=== PATIENT | male | born 1965 | race Caucasian/White ===

== ENCOUNTER 2016-10-11 14:28 | Inpatient (IN) ==
[2016-10-11] MEDS ORDERED: Mag Hydrox/Al Hydrox/Simeth 30 ML UDC PO PRN (17:01)
[2016-10-11] MEDS ORDERED: Naloxone 0.4 MG/ML INJ IVP PRN (17:01)
[2016-10-11] MEDS ORDERED: MOM Conc 10 ML UD.LIQ PO PRN (17:01)
[2016-10-11] MEDS ORDERED: Ondansetron 4 MG/2 ML VIAL IVP PRN (17:01)
--- NOTE | 2016-10-11 17:21 | Internal Med History&Physical ---
Date of Encounter: 10/11/16 Time of Encounter: 17:14 Assessment and Plan (1) Severe sepsis Current visit: Yes Status: Acute Pt with elevated WBC and tachycardia as well as elevated lactate and pneumonia. Received IV fluids in ED. Started on abx after cultures obtained. Repeat lactate ordered. Continuing abx to cover postobstructive pneumonia. (2) Pneumonia Current visit: Yes Status: Acute Pt with postobstructive pneumonia due to mass obstructing RLL bronchus. Most likely is gram neg or other aerobic bacteria. IV abx ordered. At this time he is oxygenating fine. Qualifiers: Pneumonia type: due to other aerobic Gram-negative bacteria Laterality: bilateral Lung location: lower lobe of lung Qualified Code(s): J15.6 - Pneumonia due to other aerobic Gram-negative bacteria (3) Lung mass Current visit: Yes Status: Acute Cavitary mass in RLL area with associated adenopathy. Was to have biopsy on Wednesday. Will follow and see if can be obtained here. (4) Atrial fibrillation Current visit: Yes Status: Acute Pt with rapid atrial fib. Given IV Cardizem in ED. Will order PRN meds and start Cardizem drip if needed. No anticoagulation at this time due to hemoptysis. Qualifiers: Atrial fibrillation type: persistent Qualified Code(s): I48.1 - Persistent atrial fibrillation (5) Hemoptysis Current visit: Yes Status: Acute Related to lung mass and post obstructive pneumonia. Follow H/H. (6) Hypokalemia Current visit: Yes Status: Acute Given potassium in ED. Will reheck and replace more if needed. (7) Tobacco abuse Current visit: Yes Status: Acute Patch if needed and cessation counselling. (8) Acute renal failure Current visit: Yes Status: Acute Pt with elevated BUN and creatinine. ? if baseline (CKD 3). Will hydrate and recheck tomorrow. Qualifiers: Acute renal failure type: unspecified Qualified Code(s): N17.9 - Acute kidney failure, unspecified (9) Hypertension Current visit: Yes Status: Acute Follow BP and treat if elevated (was lower on arrival). Qualifiers: Hypertension type: essential hypertension Qualified Code(s): I10 - Essential (primary) hypertension Internal Medicine - H&P: HPI Chief complaint: Shortness of breath Admitted From: Hospital to Hospital Transfer Plans for Post Hospital Care: Transfer Custodial Facility History of present illness: Mr. Contreras is a 51 year old male with a very complicated recent history. 3-4 weeks ago he developed symptoms of respiratory infection. He was seen by his PCP and treated with abx. He was no better and returned for recheck 2 weeks later. He was sent for xrays which reveal lesion in RLL area and hilar adenopathy. He underwent CT and found a cavitary mass in RLL area. Further imaging included PET scan which was positive in that area. He followed up with oncology and was to have a biopsy (? bronch) next Wednesday. He had preop testing and was called on that his heartrate was 170. He also has been having hemoptysis over the last few days - he describes varying amounts. No fever or chills but feels more dyspneic with movement. He does continue to smoke and vape. No nausea or vomiting or constipation. No melena. Today he was more dyspneic and went to ED. He was found to be in rapid atrial fibrillation and CTA of chest showed extensive pneumonia (postobstructive) and presumed tumor. At this time he is comfortable but wants oxygen on (sat 96% on RA). He feels dyspneic at rest. Past Med Surg Social Fam HX - Past Medical History Medical history: cancer (? lung), hypertension - Past Surgical History Surgical History: appendectomy, herniorrhaphy (Had hiatel hernia repair - dehiscence after with repair.), orthopedic, other (L knee meniscus) - Social History Smoking Status: Current every day smoker Alcohol use: none Drug use: marijuana - Family History Father Living Status: (Accident) Cause of : Accident Hx Family Cardiac Disorders: Yes (HTN) Internal Medicine - H&P: Meds Amlodipine Besylate 10 mg PO BID 09/22/16 [History] Ascorbate Calcium [Vitamin C] 500 mg PO DAILY 09/22/16 [History] Aspirin 81 mg PO DAILY 09/22/16 [History] ClonazePAM [Klonopin] 1 mg PO TID 09/22/16 [History] Lisinopril-HCTZ 20-12.5 [Prinzide 20-12.5] 1 each PO DAILY 09/22/16 [History] Multivitamin [Multi-Day Vitamins] 1 each PO DAILY 09/22/16 [History] Allergies No Known Allergies Allergy (Verified 10/11/16 11:18) All Systems PM: A 10-system review of systems was performed and is negative for pertinent findings except as documented above in the HPI. - Constitutional Constitutional: anorexia, chills, excessive sweating, fatigue, malaise, weakness , weight loss - EENT Eyes: loss of vision Additional comments: Has visual field deficits from previous pituitary tumor. Ears: no decreased hearing Nose, mouth and throat: no mouth pain, no nasal discharge, no sinus pain - Cardiovascular Cardiovascular ROS IM: dyspnea, dyspnea on exertion, irregular heart rhythm, palpitations, no chest pain, no edema, no paroxysmal nocturnal dyspnea, no syncope - Respiratory Respiratory: cough, dyspnea, hemoptysis, dyspnea on exertion, chest congestion - Gastrointestinal Gastrointestinal: no abdominal pain, no constipation, no diarrhea, no heartburn , no melena - Genitourinary Genitourinary ROS male: no difficulty urinating, no dysuria, no hematuria - Musculoskeletal Musculoskeletal ROS IM: no arthralgias, no myalgias - Integumentary Integumentary IM: no erythema, no rash - Neurological Neurological ROS: no abnormal movements, no abnormal speech, no confusion, no dizziness - Psychiatric Psychiatric: no confusion, no depression - Endocrine Endocrine IM: excessive sweating, fatigue, no heat intolerance, no polydipsia - Hematologic/Lymphatic Hematologic/Lymphatic: no easy bleeding, no easy bruising - Allergic/Immunologic Allergic/Immunologic: no tongue swelling, no throat swelling - Constitutional Vitals: Temp Pulse Resp BP Pulse Ox 97.6 F 110 17 84/59 97 10/11/16 16:25 10/11/16 16:25 10/11/16 16:25 10/11/16 16:25 10/11/16 16:25 General appearance: Present: A&O X 3, answers questions appropriately - Head Head exam: Present: normocephalic - Eye Eye exam: Present: conjuntiva pink - ENT ENT exam: Present: mucous membranes dry - Respiratory Respiratory exam: Present: decreased breath sounds, rales Additional comments: Egophony present R base. - Cardiovascular Cardiovascular exam: Present: distant heart sounds, irregular rhythm, tachycardia - GI/Abdominal GI/Abdominal exam: Present: normal bowel sounds, soft. Absent: tenderness - Extremities Exam Extremities exam: Present: warm. Absent: joint swelling, pedal edema - Neurological Exam Neurological exam: Present: alert, oriented X3. Absent: motor sensory deficit, facial droop - Psychiatric Psychiatric exam: Present: normal affect, normal mood - Skin Skin exam: Present: dry, warm. Absent: rash
[2016-10-11] MEDS ORDERED: Vancomycin 1,250 MG in D5% in Water 250 ML IVPB SCH (18:00)
[2016-10-11] MEDS ORDERED: *HR* HYDROcodone/Acet 5/325 mg TABLET PO PRN (18:00)
[2016-10-11] MEDS ORDERED: *HR* Metoprolol 5 MG/5 ML VIAL IVP PRN (18:22)
[2016-10-11] MEDS ORDERED: Vancomycin 500 MG in D5% in Water (Mini-Bag+) 100 ML IVPB ONE (20:06)
[2016-10-11] MEDS: clonazePAM 1 MG TABLET PO SCH (21:35)
[2016-10-11] MEDS: 0.9 % Sodium Chloride 1,000 ML IVC SCH (21:36)
[2016-10-11] MEDS: Piperacillin/Tazobactam 3.375 GM in D5% in Water (Mini-Bag+) 100 ML IVPB SCH (23:44)
[2016-10-12 01:03] LABS: Mean Corpuscular Volume 80.5 fL (83.0-100.0); Mean Platelet Volume 10.6 fL (9.4-12.4); Red Cell Distribution Width 13.2 % (11.5-14.5)
[2016-10-12 01:04] LABS: Monocytes % 5.2 %
[2016-10-12 01:05] LABS: Basophils # 0.1 K/mcL (0.0-0.2); Basophils % 0.2 %; Hematocrit 33.1 % (37.5-50.1); Hemoglobin 11.5 g/dL (12.9-16.9); Immature Granulocytes % 1.6 % (0-4); Lymphocytes # 1.6 K/mcL (0.6-4.6); Lymphocytes % 5.4 %; Mean Corpuscular HGB Conc 34.7 g/dL (31.6-35.5); Monocytes # 1.6 K/mcL (0.0-1.3); Platelet Count 337 K/mcL (140-400); Red Blood Count 4.11 M/mcL (4.19-5.50); Segmented Neutrophils % 87.6 %
[2016-10-12 01:07] LABS: Neutrophils # 26.3 K/mcL (1.6-8.9)
[2016-10-12 01:19] LABS: Alanine Aminotransferase 25 Units/L (0-55); Albumin 2.3 g/dL (3.5-5.0); Albumin/Globulin Ratio 0.6 (1.1-2.2); Alkaline Phosphatase 128 Units/L (38-126); Aspartate Amino Transferase 29 Units/L (5-34); BUN/Creatinine Ratio 24 (6-26); Bilirubin,Total 1.8 mg/dL (0.2-1.2); Blood Urea Nitrogen 34 mg/dL (8-26); Calcium 9.2 mg/dL (8.6-10.8); Carbon Dioxide 20 mEq/L (19-29); Chloride 102 mEq/L (98-109); Globulin 4.1 g/dL (2.4-3.5); Glucose 112 mg/dL (70-99); Magnesium 1.7 mg/dL (1.6-2.6); Osmolality,Calculated 288 (280-300); Phosphorous 3.1 mg/dL (2.3-4.7); Potassium 2.9 mEq/L (3.5-4.5); Sodium 135 mEq/L (136-145); Total Protein 6.4 g/dL (6.0-8.3); eGFR For African Americans > 60 (> 60); eGFR For Non-African Americans 53 (> 60)
[2016-10-12 01:33] LABS: Platelet Estimate Normal (Normal)
[2016-10-12] MEDS ORDERED: Potassium Chloride Elixir 20 MEQ/15 ML UDC PO ONE (03:24)
[2016-10-12 06:52] LABS: BUN/Creatinine Ratio 26 (6-26); Blood Urea Nitrogen 32 mg/dL (8-26); Calcium 9.8 mg/dL (8.6-10.8); Carbon Dioxide 23 mEq/L (19-29); Chloride 102 mEq/L (98-109); Glucose 106 mg/dL (70-99); Osmolality,Calculated 289 (280-300); Sodium 136 mEq/L (136-145); eGFR For African Americans > 60 (> 60); eGFR For Non-African Americans > 60 (> 60)
[2016-10-12] MEDS ORDERED: Potassium Chloride 40 MEQ, Lidocaine 1% 2 ML in D5% in Water 500 ML IVPB ONE (08:00)
[2016-10-12] MEDS: clonazePAM 1 MG TABLET PO SCH ×3 (08:23→20:24)
[2016-10-12] MEDS: Ascorbic Acid 500 MG TABLET PO SCH (08:24)
[2016-10-12] MEDS: Multivit/Ca/Min/Fe/FA 1 TAB TABLET PO SCH (08:24)
--- NOTE | 2016-10-12 10:12 | Internal Med Progress Note ---
Addendum entered and electronically signed by Benjie Abdullahi DO 10/12/16 16:50: Discussed with oncology service: Dr. Farias, as well as radiation-oncologist Dr. Dallas. Awaiting pathology. Consideration of radiation therapy. Appreciate recs. Addendum entered and electronically signed by Benjie Abdullahi DO 10/12/16 16:27: Discussed with Be[employer] Tr[facility] Dr Grimm. R-sided pleural effusion is part of cavitary lesion, does not recommend thoracentesis. Original Note: <Benjie Abdullahi - Last Filed: 10/12/16 14:50> Date of Encounter: 10/12/16 Time of Encounter: 09:35 - Assessment and plan (1) Hemoptysis Current Visit: Yes Status: Acute Assessment and plan: Likely from invasive mass eroding into bronchial vasculature. Hgb 11 from 15 at [facility] Recheck Hgb 11 10/12/16 Underwent Bronch, biopsies, BAL, Argon Plasma Coagulation (APC) with improvement in sputum character. Appreciate pulmonology following. If no resolution, will consult rad-onc for consideration of radiation therapy. Appreciate speech recs, no red dyes. (2) Sepsis Current Visit: Yes Status: Acute Assessment and plan: Evidenced by hypotension, tachycardia, suspected source postobstructive pneumonia. Leukocytosis WBC 30,000. Cont broad spectrum antibiotics, await return cx for further delineation. Qualifiers: Sepsis type: sepsis due to unspecified organism Qualified Code(s): A41.9 - Sepsis, unspecified organism (3) Obstructive pneumonia Current Visit: Yes Status: Acute Assessment and plan: Cont Broad spectrum abx per above, suspect likely malignancy. Chest CTA 10/11/16 11:57 IMPRESSION: 1. New extensive consolidation within the right middle and right lower lobes with tree-in-bud opacities throughout the remainder of the right lung as well as mild tree-in-bud opacities in the left lung. Findings are compatible with multifocal pneumonia. 2. Nondiagnostic study for evaluation of pulmonary embolism. 3. Stable small right pleural effusion. 4. Again seen is a large cavitary mass in the right lower lobe extending towards the right hilum as well as mediastinal and right hilar lymphadenopathy. Findings are consistent with malignancy as evaluated on recent PET-CT. Chest X-Ray 10/12/16 12:45 IMPRESSION: No substantial change in right pleural effusion. (4) Lung mass Current Visit: No Status: Acute Assessment and plan: 10/12/16 Underwent bronchoscopy, with endobronchial biopsies, transbronchial needle aspiration. Await pathology and cytology. (5) Atrial fibrillation Current Visit: Yes Status: Acute Assessment and plan: pAF, likely reactive 2* sepsis and pneumonia per above. Had cardizem gtt in ED, since continues to be AF, though HR now 100-110s. His SBP is on the low side, will cont IVF, bolus as indicated. If sustained HR>140s, will add low dose cardizem. No anticoagulation 2* hemoptysis. Qualifiers: Atrial fibrillation type: paroxysmal Qualified Code(s): I48.0 - Paroxysmal atrial fibrillation (6) Acute renal failure Current Visit: Yes Status: Acute Assessment and plan: Probable multifactorial sepsis per above, as well as prerenal with intravascular depletion. SCr improving. Cont to monitor. Will send for renal US if no improvement. Qualifiers: Acute renal failure type: unspecified Qualified Code(s): N17.9 - Acute kidney failure, unspecified (7) DVT prophylaxis Current Visit: Yes Status: Acute Assessment and plan: IPCs 2* to hemoptysis. - Subjective Interval history: Pt seen/eval, he would endorse general PMH and events prompting hospitalization. Smoked 1ppd since age of 9, sometimes 2ppd. 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 Would endorse 3 weeks of subjective fever , night sweats, 6# wt loss. Formerly seen by [facility] oncologist Dr. Farias, would have prior Chest CT and PET scan revealing increased activity RML RLL , subcarinal LAD. Was awaiting on bronchoscopy with transbronchial bx. He affirms pleurisy chest discomfort, no nvd. Has been NPO since [place]. - Constitutional Vitals: Temp Pulse Resp BP Pulse Ox 98.2 F 95 16 103/83 97 10/12/16 07:27 10/12/16 07:27 10/12/16 07:27 10/12/16 07:27 10/12/16 07:27 General appearance: Present: A&O X 3, answers questions appropriately - Head Head exam: Present: atraumatic, normocephalic - Eye Eye exam: Present: EOMI, sclera anicteric - ENT ENT exam: Present: mucous membranes moist Additional comments: no oropharyngeal lesions or bloody spots seen. Edentulous. - Neck Neck exam general surgery: Present: trachea midline. Absent: nuchal rigidity - Respiratory Respiratory exam: Present: decreased breath sounds (RML and RLL gimenez), wheezes (mild). Absent: respiratory distress - Cardiovascular Cardiovascular exam: Present: +S1, +S2, tachycardia - GI/Abdominal GI/Abdominal exam: Present: soft, no peritoneal signs. Absent: tenderness - Extremities Exam Extremities exam: Present: warm, radial pulses palpable and symetrical. Absent : mottling, pedal edema - Neurological Exam Neurological exam: Present: strengths equal and symetr throughout Internal Medicine: Result - Labs CBC & Chem 7: 10/12/16 11:00 10/12/16 14:02 Labs: Short CBC 10/12/16 Range/Units 00:51 WBC 30.0 H* (4.3-11.1) K/mcL Hgb 11.5 L D (12.9-16.9) g/dL Hct 33.1 L (37.5-50.1) % Plt Count 337 (140-400) K/mcL Neutrophils # 26.3 H (1.6-8.9) K/mcL BMP 10/11/16 10/12/16 10/12/16 22:23 00:51 02:46 Sodium 135 L Potassium 3.8 D 2.9 L 2.7 L Chloride 102 Carbon Dioxide 20 BUN 34 H Creatinine 1.39 H Glucose 112 H Calcium 9.2 10/12/16 06:26 Sodium 136 Potassium 3.0 L Chloride 102 Carbon Dioxide 23 BUN 32 H Creatinine 1.21 Glucose 106 H Calcium 9.8 Cardiac Enzymes 10/11/16 10/12/16 10/12/16 Range/Units 22:23 00:53 06:26 Troponin I 0.01 0.01 0.01 (0-0.03) ng/mL Liver Function 10/12/16 Range/Units 00:51 Total Bilirubin 1.8 H (0.2-1.2) mg/dL AST 29 (5-34) Units/L ALT 25 (0-55) Units/L Alkaline Phosphatase 128 H (38-126) Units/L Albumin 2.3 L (3.5-5.0) g/dL Consult Discharge Plan - Plan Referrals: NO,PCP [Primary Care Provider] - <Reddy Yoder - Last Filed: 10/12/16 18:34> Date of Encounter: 10/12/16 - Assessment and plan (1) Severe sepsis Current Visit: No Status: Resolved (2) Pneumonia Current Visit: No Status: Acute Qualifiers: Qualified Code(s): J15.6 - Pneumonia due to other aerobic Gram-negative bacteria (3) Lung mass Current Visit: No Status: Acute (4) Atrial fibrillation Current Visit: Yes Status: Acute Qualifiers: Atrial fibrillation type: paroxysmal Qualified Code(s): I48.0 - Paroxysmal atrial fibrillation (5) Hemoptysis Current Visit: Yes Status: Acute (6) Hypokalemia Current Visit: Yes Status: Acute (7) Tobacco abuse Current Visit: Yes Status: Acute (8) Acute renal failure Current Visit: Yes Status: Acute Qualifiers: Acute renal failure type: unspecified Qualified Code(s): N17.9 - Acute kidney failure, unspecified (9) Hypertension Current Visit: Yes Status: Acute Qualifiers: Hypertension type: essential hypertension Qualified Code(s): I10 - Essential (primary) hypertension - Constitutional Vitals: Temp Pulse Resp BP Pulse Ox 98.7 F 96 16 91/73 95 10/12/16 15:54 10/12/16 15:54 10/12/16 15:54 10/12/16 15:54 10/12/16 15:54 Internal Medicine: Result - Labs CBC & Chem 7: 10/12/16 11:00 10/12/16 14:02 Labs: Short CBC 10/12/16 10/12/16 Range/Units 00:51 11:00 WBC 30.0 H* (4.3-11.1) K/mcL Hgb 11.5 L D 11.3 L (12.9-16.9) g/dL Hct 33.1 L 33.0 L (37.5-50.1) % Plt Count 337 (140-400) K/mcL Neutrophils # 26.3 H (1.6-8.9) K/mcL BMP 10/11/16 10/12/16 10/12/16 22:23 00:51 02:46 Sodium 135 L Potassium 3.8 D 2.9 L 2.7 L Chloride 102 Carbon Dioxide 20 BUN 34 H Creatinine 1.39 H Glucose 112 H Calcium 9.2 10/12/16 10/12/16 06:26 14:02 Sodium 136 Potassium 3.0 L 3.6 Chloride 102 Carbon Dioxide 23 BUN 32 H Creatinine 1.21 Glucose 106 H Calcium 9.8 Cardiac Enzymes 10/11/16 10/12/16 10/12/16 Range/Units 22:23 00:53 06:26 Troponin I 0.01 0.01 0.01 (0-0.03) ng/mL Liver Function 10/12/16 Range/Units 00:51 Total Bilirubin 1.8 H (0.2-1.2) mg/dL AST 29 (5-34) Units/L ALT 25 (0-55) Units/L Alkaline Phosphatase 128 H (38-126) Units/L Albumin 2.3 L (3.5-5.0) g/dL - Impressions Impressions Chest X-Ray 10/12/16 12:45 IMPRESSION: No substantial change in right pleural effusion. D/ / Mojgan Olivo MD / Mojgan Olivo MD Interpreting Provider: Mojgan Olivo MD - Attending Attestation I examined this patient and my medical decision-making was reviewed with the Resident Physician on 10/12/16. I agree with the documented findings, disposition and treatment plan as described except to the extent set forth below. Mr. Contreras is currently admitted for hemoptysis and resp failure from lung mass and pneumonia. He is high risk due to potential for worsening resp status. Mr. Contreras had bronchoscopy today. He is still having some hemoptysis but less. Pathology pending. He is tolerating IV abx. No fever or chills. Still with cough. No GI symptoms. Heartrate has been up and down. Exam Alert. comfortable Heart irreg- tachy Lungs with decreased sounds and egophony on R I/P 1. Postobstructive pneumonia 2. Lung mass 3. Hemoptysis 4. A fib Further diagnoses and plan as above.
--- NOTE | 2016-10-12 10:54 | Anesthesia Evaluation PreOp ---
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 Any Significant HX Other Medical History: Renal (Acute renal failure, creatinine 1.21 now), Bleeding (hemoptysis) Anesthesia History: Problems (awareness during spinal surgery) Alcohol Use: none Drug use: marijuana Medications and Allergies Amlodipine Besylate 10 mg PO DAILY 09/22/16 [History] Ascorbate Calcium [Vitamin C] 500 mg PO DAILY 09/22/16 [History] Aspirin 81 mg PO DAILY 09/22/16 [History] ClonazePAM [Klonopin] 1 mg PO QID 09/22/16 [History] Multivitamin [Multi-Day Vitamins] 1 tab PO DAILY 09/22/16 [History] Albuterol Sulfate [Ventolin Hfa] 2 puff IH Q4H PRN 10/12/16 [History] Buprenorphine HCl [Subutex] 8 mg SL DAILY 10/12/16 [History] Fluticasone/Salmeterol [Advair 250-50 Diskus] 1 puff IH BID 10/12/16 [History] Lisinopril [Zestril] 20 mg PO DAILY 10/12/16 [History] Metoprolol [Lopressor] 25 mg PO BID 10/12/16 [History] Allergies No Known Allergies Allergy (Verified 10/11/16 11:18) - Meds/Allergy Pre-op Review Medications Reviewed: Yes Allergies Reviewed: Yes Beta Blockers on Current Med List: No Anesthesia Results - Labs 10/12/16 11:00 10/12/16 06:26 - Imaging EKG: report reviewed, image reviewed (A fib with RVR) Anesthesia Exam Last Vital Signs Temp 98.2 F 10/12/16 07:27 Pulse 95 10/12/16 07:27 Resp 16 10/12/16 07:27 BP 103/83 10/12/16 07:27 Pulse Ox 97 10/12/16 07:27 Weight: 78 kg NPO (# of Hours): >> 8 hrs - HEENT Pupil (Motor): Pupils equal, EOMI Mallampati: II Teeth: Edentulous Oral Opening: Greater than 3 - FLEET TECHNICIAN LOC: Oriented - Cardiac Rhythm: Irregular - Pulmonary Breath Sounds: bilateral Rhonchi Anesthesia Assess/Plan ASA Score: 3 Modified Abdelrahman Scale for Level of Consciousness: Cooperative, oriented, and tranquil Anesthetic Plan: General Monitoring Plan: Standard Monitors Recovery Plan: PACU
[2016-10-12] MEDS ORDERED: *HR* FentaNYL (PF) 100 MCG/2 ML VIAL ONE ×3 (10:59→11:50)
[2016-10-12 11:07] LABS: Hemoglobin 11.3 g/dL (12.9-16.9)
[2016-10-12] MEDS: Piperacillin/Tazobactam 3.375 GM in D5% in Water (Mini-Bag+) 100 ML IVPB SCH ×3 (11:21→23:16)
[2016-10-12] MEDS: 0.9 % Sodium Chloride 1,000 ML IVC SCH ×2 (11:22→18:51)
[2016-10-12] MEDS ORDERED: Esmolol 100 MG/10 ML VIAL IVP ONE (12:35)
[2016-10-12] MEDS ORDERED: *HR* Succinylcholine 200 MG/10 ML VIAL IVP ONE (12:35)
[2016-10-12] MEDS ORDERED: Ondansetron 4 MG/2 ML VIAL IVP ONE (12:35)
[2016-10-12] MEDS ORDERED: Lidocaine -MPF 2% 5 ML VIAL INFILT ONE (12:35)
[2016-10-12] MEDS ORDERED: *HR* Etomidate 20 MG/10 ML AMPUL IVP ONE (12:35)
[2016-10-12] MEDS ORDERED: Lidocaine -MPF 4% 5 ML AMPUL TP ONE (12:37)
[2016-10-12] MEDS ORDERED: 0.9 % Sodium Chloride 500 ML IVC ONE (13:57)
[2016-10-12] MEDS ORDERED: *HR* HYDROcodone/Acet 5/325 mg TABLET PO PRN (14:44)
--- NOTE | 2016-10-12 15:22 | Anesthesia Evaluation Post Op ---
Date of Encounter: 10/12/16 Time of Encounter: 13:15 - Vital Signs Vital Signs: Last Vital Signs Temp 98.5 F 10/12/16 13:25 Pulse 105 10/12/16 13:25 Resp 18 10/12/16 13:25 BP 92/76 10/12/16 13:25 Pulse Ox 93 10/12/16 13:25 - Lungs Lungs: Clear Ascult./Percussion - Airway Airway: Non-obstructed - Cardiovascular Baseline Rhythm (A fib with RVR) - Mental Status Mental Status: Alert & Oriented, Answers Appropriately - Pain Pain Scale: 2 - Nausea Vomiting Nausea Vomiting: Not Present - Hydration Hydration: NPO - Discharge PostOp Status: Transfer Patient to floor
[2016-10-12] MEDS: Vancomycin 1,000 MG in D5% in Water 250 ML IVPB SCH (16:24)
[2016-10-12] MEDS: Acetaminophen 325 MG TABLET PO PRN ×2 (16:37→22:34)
[2016-10-12] MEDS ORDERED: *HR* EPINEPHrine 1 MG/10 ML SYRINGE INTRATRACH PRN (17:27)
[2016-10-12] MEDS ORDERED: Vancomycin 1,250 MG in D5% in Water 250 ML IVPB SCH (20:00)
--- NOTE | 2016-10-12 21:39 | Pulmonology Consult Note ---
Date of Encounter: 10/12/16 Time of Encounter: 10:30 Assessment and Plan (1) Massive hemoptysis Current Visit: Yes Status: Acute Patient with significant risk factors for lung cancer and explained to him about bronchoscopy and he agreed. All risks, alternatives and benefits explained to patient and he agreed. His CT chest reviewed personally and it is abnormal with cavitary lung lesion, suspicious for lung cancer. I suspected endobronchial lesion, which was confirmed with bornchoscopy. (2) Cavitary lesion of lung Current Visit: Yes Status: Acute Need bronchoscopy and empiric antibiotics are reasonable. (3) Atrial fibrillation Current Visit: Yes Status: Acute Patient was treated by anesthesia and discussed with primary team, patient need rate control. Not a candidate for any anticoagulation due to massive hemoptysis. Qualifiers: Atrial fibrillation type: paroxysmal Qualified Code(s): I48.0 - Paroxysmal atrial fibrillation (4) Obstructive pneumonia Current Visit: Yes Status: Acute This is due to endobronchial lesion and debulking of the lesion was done during bronchoscopy. History of Present Illness Consult date: 10/12/16 Requesting physician: Reddy Yoder Reason for consult: dyspnea, lung mass Chief complaint: Shortness of breath and hemoptysis History of present illness: This is a pleasant 51 year old male with significant smoking tobacco history whom I've seen him in the office last week for evaluation of lung mass and he was scheduled to have bronchoscopy, however due to A. fib with RVR, he was told to come to the hospital for bronchoscopy and treatment. Patient stated about 4 weeks ago he had symptoms of infection and pneumonia. Patient had been treated with antibiotics by his PCP. Patient ahs been having productive cough, wheezing and has been having more hemoptysis, which is more than a cup of blood and it has been continuous, especially when he cough. Patient has weight loss and no energy. Patient has CT chest with significant and extensive post-obstructive pneumonia. Patient has been having palpitation and denies chest pain. Past Med Surg Social Fam HX - Past Medical History Medical history: cancer (? lung), hypertension Psychiatric history: anxiety - Past Surgical History Surgical History: appendectomy, herniorrhaphy (Had hiatel hernia repair - dehiscence after with repair.), orthopedic, other (L knee meniscus) - Social History Smoking Status: Current every day smoker Smokeless Tobacco Status: No Alcohol use: none Drug use: marijuana - Family History Father Hx Family Cardiac Disorders: Yes Medications and Allergies Amlodipine Besylate 10 mg PO DAILY 09/22/16 [History] Ascorbate Calcium [Vitamin C] 500 mg PO DAILY 09/22/16 [History] Aspirin 81 mg PO DAILY 09/22/16 [History] ClonazePAM [Klonopin] 1 mg PO QID 09/22/16 [History] Multivitamin [Multi-Day Vitamins] 1 tab PO DAILY 09/22/16 [History] Albuterol Sulfate [Ventolin Hfa] 2 puff IH Q4H PRN 10/12/16 [History] Buprenorphine HCl [Subutex] 8 mg SL DAILY 10/12/16 [History] Fluticasone/Salmeterol [Advair 250-50 Diskus] 1 puff IH BID 10/12/16 [History] Lisinopril [Zestril] 20 mg PO DAILY 10/12/16 [History] Metoprolol [Lopressor] 25 mg PO BID 10/12/16 [History] Allergies No Known Allergies Allergy (Verified 10/11/16 11:18) All Systems: A 10-system review of systems was performed and is negative for pertinent findings except as documented above in the HPI. Physical Examination Vital Signs: Vital Signs, Last 4 Hours Pulse Resp BP Pulse Ox 10/12/16 20:29 96 10/12/16 19:00 113 19 106/67 94 General appearance: alert, appears uncomfortable Eyes: nonicteric ENT: oropharynx dry, other (Evidence of blood in the mouth) Neck: supple, no JVD Effort: mildly labored Auscultation: bilateral: rhonchi Percussion: bilateral: not dull Cardiovascular: irregular rhythm Gastrointestinal: normoactive bowel sounds, soft Extremities: no cyanosis normal mental status, non-focal exam depressed Results - Laboratory Findings CBC and BMP: 10/12/16 11:00 10/12/16 14:02 Abnormal lab findings: Abnormal lab results WBC 30.0 K/mcL (4.3-11.1) H* 10/12/16 00:51 RBC 4.11 M/mcL (4.19-5.50) L 10/12/16 00:51 Hgb 11.3 g/dL (12.9-16.9) L 10/12/16 11:00 Hct 33.0 % (37.5-50.1) L 10/12/16 11:00 MCV 80.5 fL (83.0-100.0) L 10/12/16 00:51 Neutrophils # 26.3 K/mcL (1.6-8.9) H 10/12/16 00:51 Monocytes # 1.6 K/mcL (0.0-1.3) H 10/12/16 00:51 BUN 32 mg/dL (8-26) H 10/12/16 06:26 Glucose 106 mg/dL (70-99) H 10/12/16 06:26 Total Bilirubin 1.8 mg/dL (0.2-1.2) H 10/12/16 00:51 Alkaline Phosphatase 128 Units/L (38-126) H 10/12/16 00:51 Albumin 2.3 g/dL (3.5-5.0) L 10/12/16 00:51 Globulin 4.1 g/dL (2.4-3.5) H 10/12/16 00:51 Albumin/Globulin Ratio 0.6 (1.1-2.2) L 10/12/16 00:51 - Microbiology Findings Microbiology Findings: Microbiology, Last 48 Hours 10/12/16 12:57 Gram Stain - Final Right Lower Lobe Lung - Clinical Findings Intake & Output: Intake & Output 10/12/16 10/12/16 10/12/16 07:59 15:59 23:59 Intake Total 100 / 100 1000 / 1000 200 / 200 Balance 100 / 100 1000 / 1000 200 / 200 Weight 78.4 kg Consult Discharge Plan - Plan Referrals: NO,PCP [Primary Care Provider] -
[2016-10-13] MEDS: Vancomycin 1,000 MG in D5% in Water 250 ML IVPB SCH ×2 (01:38→15:41)
[2016-10-13 04:05] LABS: Basophils % 0.1 %; Hemoglobin 11.3 g/dL (12.9-16.9); Immature Granulocytes % 1.1 % (0-4); Lymphocytes % 4.1 %; Mean Corpuscular HGB Conc 33.2 g/dL (31.6-35.5); Mean Corpuscular Hemoglobin 27.9 pg (28.0-33.3); Mean Platelet Volume 10.4 fL (9.4-12.4); Monocytes # 0.6 K/mcL (0.0-1.3); Monocytes % 2.3 %; Neutrophils # 22.4 K/mcL (1.6-8.9); Platelet Count 373 K/mcL (140-400); Red Blood Count 4.05 M/mcL (4.19-5.50); Red Cell Distribution Width 13.7 % (11.5-14.5); Segmented Neutrophils % 92.4 %
[2016-10-13 04:09] LABS: INR 1.5; Prothrombin Time 16.8 Seconds (9.4-12.1)
[2016-10-13 04:19] LABS: BUN/Creatinine Ratio 26 (6-26); Blood Urea Nitrogen 28 mg/dL (8-26); Calcium 9.7 mg/dL (8.6-10.8); Carbon Dioxide 25 mEq/L (19-29); Chloride 104 mEq/L (98-109); Glucose 145 mg/dL (70-99); Osmolality,Calculated 292 (280-300); Potassium 2.8 mEq/L (3.5-4.5); Sodium 137 mEq/L (136-145); eGFR For African Americans > 60 (> 60); eGFR For Non-African Americans > 60 (> 60)
[2016-10-13 04:20] LABS: Alanine Aminotransferase 29 Units/L (0-55); Albumin 2.2 g/dL (3.5-5.0); Albumin/Globulin Ratio 0.5 (1.1-2.2); Alkaline Phosphatase 123 Units/L (38-126); Aspartate Amino Transferase 40 Units/L (5-34); Bilirubin,Direct 0.7 mg/dL (0.0-0.5); Bilirubin,Indirect 0.3 mg/dL (0.0-1.2); Globulin 4.1 g/dL (2.4-3.5); Total Protein 6.3 g/dL (6.0-8.3)
[2016-10-13 04:37] LABS: Platelet Estimate Normal (Normal); Toxic Granulation Present (Not Present)
[2016-10-13] MEDS: Acetaminophen 325 MG TABLET PO PRN (05:00)
--- NOTE | 2016-10-13 07:52 | Rad Onc Consult Note ---
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 Contreras is a 51-year-old male smoker with a history of drug dependence seen in his hospital room for hemoptysis and postobstructive pneumonia in the setting of a large right lower lobe mass with hilar and mediastinal adenopathy. He had initially presented with recurrent pneumonia over the past [address] of the chest 09/11 demonstrated a nearly 8 cm right lower lobe mass with hilar and mediastinal adenopathy. He has seen by Dr. Stanley regarding further workup. PET/CT was performed on 09/30/2016 with hypermetabolic uptake in the previously identified disease with no definite evidence of metastatic disease. There was a indeterminate 2 cm lesion in the mid right kidney. MRI of the brain was performed without contrast on 10/08/2016. He was set up to undergo bronchoscopy, but a preop testing was noted to have a heart rate of 170 and new onset hemoptysis. He reports having had no hemoptysis now sent last week. Some episodes have been significant, up to a cup full. He underwent bronchoscopy with endobronchial ultrasound and biopsy on 2016. On exam he was noted to have fresh blood in the bronchus intermedius. A large completely obstructing congested, erythematous, friable, vascular and raise lesion was found 4 cm from the bifurcation in the bronchus intermedius. Biopsies were obtained. Additional sampling was done under guidance from the endobronchial ultrasound from the right paratracheal and subcarinal areas. Pathology is pending. This morning, he has continued to have hemoptysis and cough overnight. This is improved with sitting up. He does endorse a 60 pound weight loss over the last several months. He notes fatigue. He has chronic issues with nausea and vomiting. He does have a history of opiod addiction and abuse, having quit 7 years ago. History - Social History Smoking Status: Current every day smoker Smokeless Tobacco Status: No Alcohol Use: none Drug use: marijuana Oncology - Medications Amlodipine Besylate 10 mg PO DAILY 09/22/16 [History] Ascorbate Calcium [Vitamin C] 500 mg PO DAILY 09/22/16 [History] Aspirin 81 mg PO DAILY 09/22/16 [History] ClonazePAM [Klonopin] 1 mg PO QID 09/22/16 [History] Multivitamin [Multi-Day Vitamins] 1 tab PO DAILY 09/22/16 [History] Albuterol Sulfate [Ventolin Hfa] 2 puff IH Q4H PRN 10/12/16 [History] Buprenorphine HCl [Subutex] 8 mg SL DAILY 10/12/16 [History] Fluticasone/Salmeterol [Advair 250-50 Diskus] 1 puff IH BID 10/12/16 [History] Lisinopril [Zestril] 20 mg PO DAILY 10/12/16 [History] Metoprolol [Lopressor] 25 mg PO BID 10/12/16 [History] Allergies No Known Allergies Allergy (Verified 10/11/16 11:18) Review of Systems - Exam Provider Comments:: A 12 point review of systems was performed. Pertinent positives and negatives are listed below and in the history of present illness. All other systems negative. Physical Exam - Vitals Vital Signs: Last Vital Signs Temp 98.7 F 10/12/16 15:54 Pulse 98 10/13/16 03:51 Resp 19 10/13/16 03:51 BP 153/103 10/13/16 03:51 Pulse Ox 96 10/13/16 03:51 Weight: 80 kg - Consciousness/Orientation Level Of Consciousness: Drowsy Physical Exam: GENERAL: Alert and oriented, thin appearing. Waste basket with clot and innumerable bloodied napkins/tissues PSYCH: Affect appropriate for circumstances HEENT: Sclerae anicteric. Skin: No rashes or petechiae. Warm to touch. Lymph nodes: No cervical or supraclavicular adenopathy. Lungs: Right basilar rhonchi with diminished breath sounds, intermittent wheezing diffusely through both lung gimenez Cardiovascular: Regular rhythm and normal rate Abdomen: Soft, nontender, nondistended; no organomegaly or masses palpable. Extremities: No edema. No calf swelling or tenderness. Neurologic: Alert, cranial nerves II-XII intact grossly; not assessed; no focal weakness or sensory abnormalities. Oncology- Results - Labs Labs: Short CBC 10/12/16 10/13/16 Range/Units 11:00 03:20 WBC 24.2 H (4.3-11.1) K/mcL Hgb 11.3 L 11.3 L (12.9-16.9) g/dL Hct 33.0 L 34.0 L (37.5-50.1) % Plt Count 373 (140-400) K/mcL Neutrophils # 22.4 H (1.6-8.9) K/mcL BMP 10/12/16 10/13/16 14:02 03:20 Sodium 137 Potassium 3.6 2.8 L Chloride 104 Carbon Dioxide 25 BUN 28 H Creatinine 1.07 Glucose 145 H Calcium 9.7 Cardiac Enzymes 10/12/16 Range/Units 06:26 Troponin I 0.01 (0-0.03) ng/mL Liver Function 10/13/16 Range/Units 03:20 Total Bilirubin 1.0 (0.2-1.2) mg/dL Direct Bilirubin 0.7 H (0.0-0.5) mg/dL AST 40 H (5-34) Units/L ALT 29 (0-55) Units/L Alkaline Phosphatase 123 (38-126) Units/L Albumin 2.2 L (3.5-5.0) g/dL - Diagnostic Studies Imagin09/30/2016 PET/CT reviewed 1. Large cavitary lesion in the right lower lobe extending to the right hilumis intensely hypermetabolic and consistent with malignancy. Intensely hypermetabolic subcarinal lymph node is likely metastatic while moderate right hilar uptake could relate to a reactive or metastatic lymph node. 2. Indeterminate 2 cm lesion in the mid right kidney. Recommend renal CT or MRI for further evaluation. 3. Other findings include large right hydrocele and small right pleural effusion. 10/08/2016 MRI brain without contrast Stable bilateral occipital lobe encephalomalacia in the region of the visual cortices. No evidence of acute ischemia. Pathology: 10/12/2016 pending - Assessment Assessment: Assessment: 51-year-old male smoker with weight loss, large volume hemoptysis, postobstructive pneumonia in the setting of large right lower lobe mass with hilar mediastinal adenopathy, biopsy pending. Plan: Discussed the patient's likely lung cancer diagnosis at length with him this morning. No family members were available, though he was waiting on his sister. No clear evidence of metastatic disease. Local thoracic symptoms of postobstructive pneumonia and ongoing hemoptysis. Discussed radiotherapy as a palliating measure for hemoptysis and obstruction as well as potential definitive management option for thoracic confined disease. Recommended CT simulation at the cancer center today (late morning or early afternoon) to start treatment either today or tomorrow to control hemoptysis as long as patient remains hemodynamically stable. Thank for allowing me to participate in this patient's care. Please do not hesitate in contacting me with any questions or concerns. Ben Dallas MD Radiation oncology This report was generated using [employer] dictation. There may be errors that were overlooked during editing.
[2016-10-13] MEDS: Piperacillin/Tazobactam 3.375 GM in D5% in Water (Mini-Bag+) 100 ML IVPB SCH ×3 (08:40→23:08)
[2016-10-13] MEDS: clonazePAM 1 MG TABLET PO SCH ×2 (08:41→14:09)
[2016-10-13] MEDS: Magnesium Oxide 400 MG TABLET PO SCH (08:42)
[2016-10-13] MEDS: Potassium Chloride Elixir 20 MEQ/15 ML UDC PO SCH ×2 (08:42→20:50)
[2016-10-13] MEDS: Multivit/Ca/Min/Fe/FA 1 TAB TABLET PO SCH (08:42)
[2016-10-13] MEDS: Ascorbic Acid 500 MG TABLET PO SCH (08:42)
--- NOTE | 2016-10-13 08:45 | Pulmonology Progress Note ---
Date of Encounter: 10/13/16 Time of Encounter: 07:55 Assessment and Plan (1) Massive hemoptysis Current Visit: Yes Status: Acute There is some improvement after bronchoscopy and H&H remain stable. Agree with radiation therapy and if continue consider IR intervention and may need to repeat bronchoscopy. (2) Cavitary lesion of lung Current Visit: Yes Status: Acute Follow up on BAL ID. (3) Atrial fibrillation Current Visit: Yes Status: Acute Qualifiers: Atrial fibrillation type: paroxysmal Qualified Code(s): I48.0 - Paroxysmal atrial fibrillation (4) Obstructive pneumonia Current Visit: Yes Status: Acute Radiation therapy may help this. Subjective Principal diagnosis: Lung mass and hemoptysis Interval history: Patient had bronchoscopy and still have some hemoptysis, however his H&& remain stable. Objective PUL Vital signs: Last Vital Signs Temp 97.5 F L 10/13/16 08:22 Pulse 100 10/13/16 08:22 Resp 15 10/13/16 08:22 BP 110/93 10/13/16 08:22 Pulse Ox 94 10/13/16 08:22 General appearance: appears uncomfortable Eyes: nonicteric Neck: supple Effort: mildly labored Auscultation: bilateral: diminished breath sounds Percussion: bilateral: not dull Cardiovascular: regular rate and rhythm Gastrointestinal: normoactive bowel sounds Extremities: no cyanosis normal mental status, non-focal exam depressed Results - Laboratory Findings CBC and BMP: 10/13/16 03:20 10/13/16 03:20 PT/INR, D-dimer PT 16.8 Seconds (9.4-12.1) H 10/13/16 03:20 Abnormal lab findings: Abnormal lab results WBC 24.2 K/mcL (4.3-11.1) H 10/13/16 03:20 RBC 4.05 M/mcL (4.19-5.50) L 10/13/16 03:20 Hgb 11.3 g/dL (12.9-16.9) L 10/13/16 03:20 Hct 34.0 % (37.5-50.1) L 10/13/16 03:20 MCH 27.9 pg (28.0-33.3) L 10/13/16 03:20 Neutrophils # 22.4 K/mcL (1.6-8.9) H 10/13/16 03:20 Toxic Granulation Present (Not Present) A 10/13/16 03:20 PT 16.8 Seconds (9.4-12.1) H 10/13/16 03:20 Potassium 2.8 mEq/L (3.5-4.5) L 10/13/16 03:20 BUN 28 mg/dL (8-26) H 10/13/16 03:20 Glucose 145 mg/dL (70-99) H 10/13/16 03:20 Direct Bilirubin 0.7 mg/dL (0.0-0.5) H 10/13/16 03:20 AST 40 Units/L (5-34) H 10/13/16 03:20 Albumin 2.2 g/dL (3.5-5.0) L 10/13/16 03:20 Globulin 4.1 g/dL (2.4-3.5) H 10/13/16 03:20 Albumin/Globulin Ratio 0.5 (1.1-2.2) L 10/13/16 03:20 - Microbiology Findings Microbiology Findings: Microbiology, Last 48 Hours 10/12/16 12:57 Gram Stain - Final Right Lower Lobe Lung - Clinical Findings Intake & Output: Intake & Output 10/12/16 10/13/16 10/13/16 23:59 07:59 15:59 Intake Total 550 / 550 350 / 350 0 / 0 Output Total 0 / 0 0 / 0 Balance 550 / 550 350 / 350 0 / 0 Weight 80 kg 80 kg - VTE Documentation of Mechanical Device: Graduated compression elastic hosiery Consult Discharge Plan - Plan Referrals: NO,PCP [Primary Care Provider] -
--- NOTE | 2016-10-13 09:25 | Internal Med Progress Note ---
<Benjie Abdullahi - Last Filed: 10/13/16 14:52> Date of Encounter: 10/13/16 Time of Encounter: 09:20 - Assessment and plan (1) Hemoptysis Current Visit: Yes Status: Acute Assessment and plan: Likely from invasive mass eroding into bronchial vasculature. Hgb 11 from 15 at [facility] Recheck Hgb 11 10/12/16 Underwent Bronch, biopsies, BAL, Argon Plasma Coagulation (APC) with improvement in sputum character. Appreciate pulmonology following. Pathology pending. Hgb steady, appreciate radiation oncology recs, pt to have radiation therapy. (2) Sepsis Current Visit: Yes Status: Acute Assessment and plan: Evidenced by hypotension, tachycardia, suspected source postobstructive pneumonia. Leukocytosis WBC 30,000. Cont broad spectrum antibiotics, await return cx for further delineation. Qualifiers: Sepsis type: sepsis due to unspecified organism Qualified Code(s): A41.9 - Sepsis, unspecified organism (3) Obstructive pneumonia Current Visit: Yes Status: Acute Assessment and plan: Cont Broad spectrum abx per above, suspect likely malignancy. Chest CTA 10/11/16 11:57 IMPRESSION: 1. New extensive consolidation within the right middle and right lower lobes with tree-in-bud opacities throughout the remainder of the right lung as well as mild tree-in-bud opacities in the left lung. Findings are compatible with multifocal pneumonia. 2. Nondiagnostic study for evaluation of pulmonary embolism. 3. Stable small right pleural effusion. 4. Again seen is a large cavitary mass in the right lower lobe extending towards the right hilum as well as mediastinal and right hilar lymphadenopathy. Findings are consistent with malignancy as evaluated on recent PET-CT. Chest X-Ray 10/12/16 12:45 IMPRESSION: No substantial change in right pleural effusion. (4) Lung mass Current Visit: No Status: Acute Assessment and plan: 10/12/16 Underwent bronchoscopy, with endobronchial biopsies, transbronchial needle aspiration. Await pathology and cytology. (5) Atrial fibrillation Current Visit: Yes Status: Acute Assessment and plan: pAF, likely reactive 2* sepsis and pneumonia per above. Had cardizem gtt in ED, since continues to be AF, though HR now 100-110s. His SBP is on the low side, will cont IVF, bolus as indicated. If sustained HR>140s, will add low dose cardizem. No anticoagulation 2* hemoptysis. Qualifiers: Atrial fibrillation type: paroxysmal Qualified Code(s): I48.0 - Paroxysmal atrial fibrillation (6) Acute renal failure Current Visit: Yes Status: Acute Assessment and plan: Probable multifactorial sepsis per above, as well as prerenal with intravascular depletion. SCr improving. Cont to monitor. Will send for renal US if no improvement. Qualifiers: Acute renal failure type: unspecified Qualified Code(s): N17.9 - Acute kidney failure, unspecified (7) DVT prophylaxis Current Visit: Yes Status: Acute Assessment and plan: IPCs 2* to hemoptysis. - Subjective Interval history: Pt seen/eval, he still has hemoptysis, though Hgb is steady. Endorses pleuritic discomfort. No fever, chills, nvd. - Constitutional Vitals: Temp Pulse Resp BP Pulse Ox 97.5 F L 100 15 110/93 94 10/13/16 08:22 10/13/16 08:22 10/13/16 08:22 10/13/16 08:22 10/13/16 08:22 General appearance: Present: A&O X 3, answers questions appropriately - Head Head exam: Present: atraumatic, normocephalic - Eye Eye exam: Present: EOMI, sclera anicteric - ENT ENT exam: Present: mucous membranes moist - Neck Neck exam general surgery: Present: supple, trachea midline - Respiratory Respiratory exam: Present: decreased breath sounds (RLL), rhonchi (all gimenez, pronounced RLL) - Cardiovascular Cardiovascular exam: Present: +S1, +S2, tachycardia - GI/Abdominal GI/Abdominal exam: Present: soft, no peritoneal signs. Absent: tenderness - Extremities Exam Extremities exam: Present: warm, radial pulses palpable and symetrical. Absent : pedal edema Internal Medicine: Result - Labs CBC & Chem 7: 10/13/16 03:20 10/13/16 03:20 Labs: Short CBC 10/12/16 10/13/16 Range/Units 11:00 03:20 WBC 24.2 H (4.3-11.1) K/mcL Hgb 11.3 L 11.3 L (12.9-16.9) g/dL Hct 33.0 L 34.0 L (37.5-50.1) % Plt Count 373 (140-400) K/mcL Neutrophils # 22.4 H (1.6-8.9) K/mcL BMP 10/12/16 10/13/16 14:02 03:20 Sodium 137 Potassium 3.6 2.8 L Chloride 104 Carbon Dioxide 25 BUN 28 H Creatinine 1.07 Glucose 145 H Calcium 9.7 Liver Function 10/13/16 Range/Units 03:20 Total Bilirubin 1.0 (0.2-1.2) mg/dL Direct Bilirubin 0.7 H (0.0-0.5) mg/dL AST 40 H (5-34) Units/L ALT 29 (0-55) Units/L Alkaline Phosphatase 123 (38-126) Units/L Albumin 2.2 L (3.5-5.0) g/dL - ABG Interpretation ABG results: PT/INR, D-dimer PT 16.8 Seconds (9.4-12.1) H 10/13/16 03:20 - Impressions Impressions Chest X-Ray 10/12/16 12:45 IMPRESSION: No substantial change in right pleural effusion. D/ / Mojgan Olivo MD / Mojgan Olivo MD Interpreting Provider: Mojgan Olivo MD Chest X-Ray 10/13/16 07:00 IMPRESSION: Stable chest. Stable cardiomegaly. Known lung mass at the right lung base. Atelectasis and small pleural effusion at the right lung base. Increased lung markings at the right parahilar region, likely related to pneumonia. D/ / Quinn Whittington MD / Quinn Whittington MD Interpreting Provider: Quinn Whittington MD - VTE Documentation of Mechanical Device: Graduated compression elastic hosiery Consult Discharge Plan - Plan Referrals: NO,PCP [Non-Partnered Physician] - <Reddy Yoder - Last Filed: 10/13/16 18:28> Date of Encounter: 10/13/16 - Assessment and plan (1) Pneumonia Current Visit: No Status: Acute Qualifiers: Qualified Code(s): J15.6 - Pneumonia due to other aerobic Gram-negative bacteria (2) Lung mass Current Visit: No Status: Acute (3) Atrial fibrillation Current Visit: Yes Status: Acute Qualifiers: Qualified Code(s): I48.0 - Paroxysmal atrial fibrillation (4) Hemoptysis Current Visit: Yes Status: Acute (5) Hypokalemia Current Visit: Yes Status: Acute (6) Tobacco abuse Current Visit: Yes Status: Acute (7) Acute renal failure Current Visit: Yes Status: Acute Qualifiers: Qualified Code(s): N17.9 - Acute kidney failure, unspecified (8) Hypertension Current Visit: Yes Status: Acute Qualifiers: Qualified Code(s): I10 - Essential (primary) hypertension - Constitutional Vitals: Temp Pulse Resp BP Pulse Ox 97.9 F 104 16 119/86 99 10/13/16 15:57 10/13/16 15:57 10/13/16 15:57 10/13/16 15:57 10/13/16 15:57 Internal Medicine: Result - Labs CBC & Chem 7: 10/13/16 03:20 10/13/16 03:20 Labs: Short CBC 10/13/16 Range/Units 03:20 WBC 24.2 H (4.3-11.1) K/mcL Hgb 11.3 L (12.9-16.9) g/dL Hct 34.0 L (37.5-50.1) % Plt Count 373 (140-400) K/mcL Neutrophils # 22.4 H (1.6-8.9) K/mcL BMP 10/13/16 03:20 Sodium 137 Potassium 2.8 L Chloride 104 Carbon Dioxide 25 BUN 28 H Creatinine 1.07 Glucose 145 H Calcium 9.7 Liver Function 10/13/16 Range/Units 03:20 Total Bilirubin 1.0 (0.2-1.2) mg/dL Direct Bilirubin 0.7 H (0.0-0.5) mg/dL AST 40 H (5-34) Units/L ALT 29 (0-55) Units/L Alkaline Phosphatase 123 (38-126) Units/L Albumin 2.2 L (3.5-5.0) g/dL - ABG Interpretation ABG results: PT/INR, D-dimer PT 16.8 Seconds (9.4-12.1) H 10/13/16 03:20 - Impressions Impressions Chest X-Ray 10/13/16 07:00 IMPRESSION: Stable chest. Stable cardiomegaly. Known lung mass at the right lung base. Atelectasis and small pleural effusion at the right lung base. Increased lung markings at the right parahilar region, likely related to pneumonia. D/ / Quinn Whittington MD / Quinn Whittington MD Interpreting Provider: Quinn Whittington MD - Attending Attestation I examined this patient and my medical decision-making was reviewed with the Resident Physician on 10/13/16. I agree with the documented findings, disposition and treatment plan as described except to the extent set forth below. Mr. Cnotreras is currently admitted for acute postobstructive pneumonia and rapid a fib. He is high risk due to potential for worsening respiratory status. Mr. Contreras is starting radiation today. He is having pain and meds adjusted. He would like Valium instead of Clonopin. No GI symptoms. Coughing up less blood today. Exam Alert. Comfortable Heart irreg - not tachy Diminished breath sounds I/P 1. Hypoxia 2. Lung mass 3. Postobstructive pneumonia Further diagnoses and plan as above.
[2016-10-13] MEDS: *HR* OxyCODONE/APAP 7.5/325 TABLET PO PRN ×3 (10:23→20:50)
[2016-10-13] MEDS: 0.9 % Sodium Chloride 1,000 ML IVC SCH (12:29)
--- NOTE | 2016-10-13 12:55 | RAD Oncology Progress Note ---
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 Contreras was brought into the CT Simulation suite and placed in the supine position. A custom vac-lock device for arm positioning was created. 3D CT SIMULATION 3D CT Simulation was required secondary to[irregular shape of the target volume , close proximity to critical normal structures, target volume requires 3D imaging for identification. Critical normal structures adjacent to the target volume include the following: heart, lungs, esophagus, spinal cord, kidneys, liver. CT images were obtained. [employer] software was utilized to place an isocenter for treatment planning. This will be transferred to the lasers in the treatment room and will be used to charleen the patient for daily positioning. A 2 field plan will be utilized to deliver initially 600 cGy in 2 fractions of 300 cGy each followed by 2600 cGy in 13 fractions of 200 cGy followed by replanning with an intended additional 3000 cGy in 15 fractions likely using intensity modulated radiotherapy. DAILY IMAGING Daily imaging will be required to insure adequate treatment of the target volume and avoidance of critical normal structures with CBCT secondary to the following: close margin between target volume and critical structures. We will align the daily imaging with simulation imaging daily with focus on the GTV, tracheobronchial tree, and bony anatomy. WEEKLY MONITORING This patient will require weekly monitoring in the form of on-treatment visits to assess for progression through treatment, ability to tolerate further treatment, and to assess for treatment-related side effects in order to manage them. CONCURRENT CHEMOTHERAPY Possibly. Under the care of Dr. Stanley CONSENT Consent has been obtained, and the patient is amenable to treatment. The risks and benefits of radiotherapy have been explained, and the patient is agreeable to proceed. A separate consent document has been filed. Delonte Dallas MD Radiation Oncologist [facility] [address] [place] [address] This report was generated using [employer] dictation. There may be errors that were overlooked during editing.
--- NOTE | 2016-10-13 18:24 | Oncology Inp Consult Note ---
Date of Encounter: 10/13/16 Time of Encounter: 17:00 Assessment and Plan (1) Cavitary lesion of lung Status: Acute Assessment and plan: s/p bx likely lung malignancy, final path pending and histology. He has started RT due to significant bleeding and prelim path, staged T3N2, stage IIIA. Patient had questions why surgery is not an option. Discussed plan as above with him and his nephew Plan concurrent chemotherapy (likely carbotaxol if squam)soon as path available and stable. He is tachycardic with min exertion and requiring oxygen nC. Bleeding under control, Hgb steady. 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 Findings concerning for malignancy or infection. He currently smokes cigarettes as well as marijuana. He has chronic vision changes due to brain tumor. Patient missed an outpt pulmonary appointment 09/30/2016. PET imaging completed 10/12 shows uptake in the right lower lobe cavitary mass lesion right hilar lymph node and in the subcarinal region lymphadenopathy showing metabolic uptake. He is hospitalized with hemoptysis nad dtop in Hgb/Hct. S/P bronch that showed endo bronchial erythema, friable lesion that was biopsied -?prelim non small cell, final path pending Patient reports less bleeding since procedure and APC. He has started Rt today. Denies headaches or chest pains. Past Med Surg Social Fam HX - Past Medical History Medical history: cancer (? lung), hypertension Psychiatric history: anxiety - Past Surgical History Surgical History: appendectomy, herniorrhaphy (Had hiatel hernia repair - dehiscence after with repair.), orthopedic, other (L knee meniscus) - Social History Smoking Status: Current every day smoker Smokeless Tobacco Status: No Alcohol use: none Drug use: marijuana - Family History Father Hx Family Cardiac Disorders: Yes Medications and Allergies Amlodipine Besylate 10 mg PO DAILY 09/22/16 [History] Ascorbate Calcium [Vitamin C] 500 mg PO DAILY 09/22/16 [History] Aspirin 81 mg PO DAILY 09/22/16 [History] ClonazePAM [Klonopin] 1 mg PO QID 09/22/16 [History] Multivitamin [Multi-Day Vitamins] 1 tab PO DAILY 09/22/16 [History] Albuterol Sulfate [Ventolin Hfa] 2 puff IH Q4H PRN 10/12/16 [History] Buprenorphine HCl [Subutex] 8 mg SL DAILY 10/12/16 [History] Fluticasone/Salmeterol [Advair 250-50 Diskus] 1 puff IH BID 10/12/16 [History] Lisinopril [Zestril] 20 mg PO DAILY 10/12/16 [History] Metoprolol [Lopressor] 25 mg PO BID 10/12/16 [History] Allergies No Known Allergies Allergy (Verified 10/11/16 11:18) Review of systems: as in HPI otherwise neg Oncology - Exam - Constitutional Vitals: Temp Pulse Resp BP Pulse Ox 97.9 F 104 16 119/86 99 10/13/16 15:57 10/13/16 15:57 10/13/16 15:57 10/13/16 15:57 10/13/16 15:57 General appearance: mild distress - Head Head exam: Present: atraumatic, normal inspection - Eye Eye exam: Present: sclera anicteric - ENT ENT exam: Present: mucous membranes dry - Neck Neck exam: Present: full ROM - Respiratory Respiratory exam: Present: decreased breath sounds, CTAB - Cardiovascular Cardiovascular exam: Present: +S1, +S2, tachycardia - GI/Abdominal GI/Abdominal exam: Present: normal bowel sounds, soft - Extremities Exam Extremities exam: Present: normal inspection - Back Exam Back exam: Present: full ROM - Neurological Exam Neurological exam: Present: alert, oriented X3, no focal deficits - Psychiatric Psychiatric exam: Present: normal affect Oncology - Results - Labs Labs: Short CBC 10/13/16 Range/Units 03:20 WBC 24.2 H (4.3-11.1) K/mcL Hgb 11.3 L (12.9-16.9) g/dL Hct 34.0 L (37.5-50.1) % Plt Count 373 (140-400) K/mcL Neutrophils # 22.4 H (1.6-8.9) K/mcL BMP 10/13/16 03:20 Sodium 137 Potassium 2.8 L Chloride 104 Carbon Dioxide 25 BUN 28 H Creatinine 1.07 Glucose 145 H Calcium 9.7 Liver Function 10/13/16 Range/Units 03:20 Total Bilirubin 1.0 (0.2-1.2) mg/dL Direct Bilirubin 0.7 H (0.0-0.5) mg/dL AST 40 H (5-34) Units/L ALT 29 (0-55) Units/L Alkaline Phosphatase 123 (38-126) Units/L Albumin 2.2 L (3.5-5.0) g/dL - Imaging and Cardiology CT scan - chest Status: image reviewed by me Consult Discharge Plan - Plan Referrals: NO,PCP [Non-Partnered Physician] -
[2016-10-13] MEDS: diazePAM 5 MG TABLET PO PRN (23:08)
[2016-10-14] MEDS: 0.9 % Sodium Chloride 1,000 ML IVC SCH (03:10)
[2016-10-14] MEDS: *HR* OxyCODONE/APAP 7.5/325 TABLET PO PRN ×4 (03:10→20:37)
[2016-10-14] MEDS: Vancomycin 1,000 MG in D5% in Water 250 ML IVPB SCH ×2 (03:11→17:13)
[2016-10-14 03:34] LABS: Basophils % 0.1 %; Monocytes % 3.5 %
[2016-10-14 03:36] LABS: Hematocrit 32.3 % (37.5-50.1); Hemoglobin 10.7 g/dL (12.9-16.9); Lymphocytes # 1.3 K/mcL (0.6-4.6); Lymphocytes % 4.8 %; Mean Corpuscular HGB Conc 33.1 g/dL (31.6-35.5); Mean Corpuscular Hemoglobin 28.2 pg (28.0-33.3); Mean Platelet Volume 10.2 fL (9.4-12.4); Monocytes # 0.9 K/mcL (0.0-1.3); Neutrophils # 24.1 K/mcL (1.6-8.9); Platelet Count 349 K/mcL (140-400); Red Cell Distribution Width 13.9 % (11.5-14.5); Segmented Neutrophils % 90.6 %
[2016-10-14 03:41] LABS: BUN/Creatinine Ratio 24 (6-26); Blood Urea Nitrogen 22 mg/dL (8-26); Calcium 9.7 mg/dL (8.6-10.8); Carbon Dioxide 27 mEq/L (19-29); Chloride 109 mEq/L (98-109); Glucose 107 mg/dL (70-99); Magnesium 1.8 mg/dL (1.6-2.6); Osmolality,Calculated 292 (280-300); Potassium 3.8 mEq/L (3.5-4.5); Sodium 139 mEq/L (136-145); eGFR For African Americans > 60 (> 60); eGFR For Non-African Americans > 60 (> 60)
[2016-10-14 04:03] LABS: Platelet Estimate Normal (Normal)
[2016-10-14] MEDS: Piperacillin/Tazobactam 3.375 GM in D5% in Water (Mini-Bag+) 100 ML IVPB SCH ×2 (08:23→17:13)
[2016-10-14] MEDS: Magnesium Oxide 400 MG TABLET PO SCH (08:23)
[2016-10-14] MEDS: Multivit/Ca/Min/Fe/FA 1 TAB TABLET PO SCH (08:23)
[2016-10-14] MEDS: Potassium Chloride Elixir 20 MEQ/15 ML UDC PO SCH (08:23)
[2016-10-14] MEDS: Ascorbic Acid 500 MG TABLET PO SCH (08:23)
[2016-10-14] MEDS: diazePAM 5 MG TABLET PO PRN ×2 (08:33→17:12)
--- NOTE | 2016-10-14 08:53 | Internal Med Progress Note ---
<Bnejie Abdullahi - Last Filed: 10/14/16 13:32> Date of Encounter: 10/14/16 Time of Encounter: 08:45 - Assessment and plan (1) Hemoptysis Current Visit: Yes Status: Acute Assessment and plan: Likely from invasive mass eroding into bronchial vasculature. Hgb 11 from 15 at [place] Recheck Hgb 11 10/12/16 Underwent Bronch, biopsies, BAL, Argon Plasma Coagulation (APC) with improvement in sputum character. Appreciate pulmonology following. 10/14 Hgb to 10.7, hemoptysis following radiation therapy on 10/13 is slightly improved. Documented net positive 4.8 L since admission. Remains mildly tachycardic (with pleuritic pain), but steady. Will recheck Hgb this evening. (2) Lung mass Current Visit: No Status: Acute Assessment and plan: 10/12/16 Underwent bronchoscopy, with endobronchial biopsies, transbronchial needle aspiration. Subcarinal lymph node, fine-needle aspiration: Few lymphocytes and bronchial cells seen. Right paratracheal lymph node, fine needle aspiration: Lymphocytes and reactive bronchial cells seen. Lung, right lower lobe, bronchoalveolar lavage: Negative for malignant cells, see comment. Preparations show mostly acute inflammatory cells, bronchial cells and alveolar macrophages. No viral inclusions, microorganisms, granulomas or evidence of malignancy is seen. Consider repeat bronch/sampling of mass or LN. (3) Sepsis Current Visit: Yes Status: Acute Assessment and plan: Evidenced by hypotension, tachycardia, suspected source postobstructive pneumonia. Initial Leukocytosis WBC 30,000. Sputum Cx nml upper resp duarte. In setting of his persistent leukocytosis ~25,000 with pleurisy and post- obstructive component, cont Broad spectrum Abx at this time. Qualifiers: Sepsis type: sepsis due to unspecified organism Qualified Code(s): A41.9 - Sepsis, unspecified organism (4) Obstructive pneumonia Current Visit: Yes Status: Acute Assessment and plan: Cont Broad spectrum abx per above, suspect likely malignancy. Chest CTA 10/11/16 11:57 IMPRESSION: 1. New extensive consolidation within the right middle and right lower lobes with tree-in-bud opacities throughout the remainder of the right lung as well as mild tree-in-bud opacities in the left lung. Findings are compatible with multifocal pneumonia. 2. Nondiagnostic study for evaluation of pulmonary embolism. 3. Stable small right pleural effusion. 4. Again seen is a large cavitary mass in the right lower lobe extending towards the right hilum as well as mediastinal and right hilar lymphadenopathy. Findings are consistent with malignancy as evaluated on recent PET-CT. Chest X-Ray 10/12/16 12:45 IMPRESSION: No substantial change in right pleural effusion. (5) Atrial fibrillation Current Visit: Yes Status: Acute Assessment and plan: pAF, likely reactive 2* sepsis and pneumonia per above. Had cardizem gtt in ED, since continues to be AF, though HR now 100-110s. His SBP is on the low side, will cont IVF, bolus as indicated. If sustained HR>140s, will add low dose cardizem. No anticoagulation 2* hemoptysis. Qualifiers: Atrial fibrillation type: paroxysmal Qualified Code(s): I48.0 - Paroxysmal atrial fibrillation (6) Acute renal failure Current Visit: Yes Status: Resolved Assessment and plan: Probable multifactorial sepsis per above, as well as prerenal with intravascular depletion. SCr improving. Cont to monitor. Will send for renal US if no improvement. 10/14 SCR 0.9, consider resolved Qualifiers: Acute renal failure type: unspecified Qualified Code(s): N17.9 - Acute kidney failure, unspecified (7) DVT prophylaxis Current Visit: Yes Status: Acute Assessment and plan: IPCs 2* to hemoptysis. - Subjective Interval history: Pt seen/eval, he underwent radiation therapy yesterday, still coughing but sputum is less bloody. Endorses pleuritic chest pain, pronounced with deep inspiration. Denies other concerns. - Constitutional Vitals: Temp Pulse Resp BP Pulse Ox 98.6 F 90 16 114/82 95 10/14/16 07:06 10/14/16 07:06 10/14/16 07:06 10/14/16 07:06 10/14/16 08:38 General appearance: Present: A&O X 3, answers questions appropriately - Head Head exam: Present: atraumatic, normocephalic - Eye Eye exam: Present: EOMI, sclera anicteric - ENT ENT exam: Present: mucous membranes moist - Neck Neck exam general surgery: Present: supple, trachea midline - Respiratory Respiratory exam: Present: rhonchi (pronounced ronchi, dim air mvt RML and RLL gimenez), wheezes (scant) Additional comments: coughing spells - Cardiovascular Cardiovascular exam: Present: +S1, +S2, tachycardia. Absent: JVD - GI/Abdominal GI/Abdominal exam: Present: soft, no peritoneal signs. Absent: tenderness - Extremities Exam Extremities exam: Present: warm, radial pulses palpable and symetrical. Absent : pedal edema Internal Medicine: Result - Labs CBC & Chem 7: 10/14/16 03:18 10/14/16 03:18 Labs: Short CBC 10/14/16 Range/Units 03:18 WBC 26.6 H (4.3-11.1) K/mcL Hgb 10.7 L (12.9-16.9) g/dL Hct 32.3 L (37.5-50.1) % Plt Count 349 (140-400) K/mcL Neutrophils # 24.1 H (1.6-8.9) K/mcL BMP 10/14/16 03:18 Sodium 139 Potassium 3.8 D Chloride 109 Carbon Dioxide 27 BUN 22 Creatinine 0.90 Glucose 107 H Calcium 9.7 - ABG Interpretation ABG results: PT/INR, D-dimer PT 16.8 Seconds (9.4-12.1) H 10/13/16 03:20 - VTE Documentation of Mechanical Device: Graduated compression elastic hosiery Consult Discharge Plan - Plan Referrals: NO,PCP [Non-Partnered Physician] - <Reddy Yoder - Last Filed: 10/14/16 14:02> Date of Encounter: 10/14/16 - Assessment and plan (1) Pneumonia Current Visit: No Status: Acute Assessment and plan: On IV abx. Qualifiers: Pneumonia type: due to other aerobic Gram-negative bacteria Laterality: right Lung location: lower lobe of lung Qualified Code(s): J15.6 - Pneumonia due to other aerobic Gram-negative bacteria (2) Lung mass Current Visit: No Status: Acute (3) Atrial fibrillation Current Visit: Yes Status: Acute Qualifiers: Atrial fibrillation type: paroxysmal Qualified Code(s): I48.0 - Paroxysmal atrial fibrillation (4) Hemoptysis Current Visit: Yes Status: Acute (5) Hypokalemia Current Visit: Yes Status: Acute (6) Tobacco abuse Current Visit: Yes Status: Chronic (7) Acute renal failure Current Visit: Yes Status: Resolved Qualifiers: Acute renal failure type: unspecified Qualified Code(s): N17.9 - Acute kidney failure, unspecified (8) Hypertension Current Visit: Yes Status: Chronic Qualifiers: Hypertension type: essential hypertension Qualified Code(s): I10 - Essential (primary) hypertension - Constitutional Vitals: Temp Pulse Resp BP Pulse Ox 97.8 F 96 16 101/75 98 10/14/16 11:47 10/14/16 11:47 10/14/16 11:47 10/14/16 11:47 10/14/16 11:47 Internal Medicine: Result - Labs CBC & Chem 7: 10/14/16 03:18 10/14/16 03:18 Labs: Short CBC 10/14/16 Range/Units 03:18 WBC 26.6 H (4.3-11.1) K/mcL Hgb 10.7 L (12.9-16.9) g/dL Hct 32.3 L (37.5-50.1) % Plt Count 349 (140-400) K/mcL Neutrophils # 24.1 H (1.6-8.9) K/mcL BMP 10/14/16 03:18 Sodium 139 Potassium 3.8 D Chloride 109 Carbon Dioxide 27 BUN 22 Creatinine 0.90 Glucose 107 H Calcium 9.7 - ABG Interpretation ABG results: PT/INR, D-dimer PT 16.8 Seconds (9.4-12.1) H 10/13/16 03:20 - Attending Attestation I examined this patient and my medical decision-making was reviewed with the Resident Physician on 10/14/16. I agree with the documented findings, disposition and treatment plan as described except to the extent set forth below. Mr Contreras is currently admitted for hypoxic resp failure due to postobstructive pneumonia. He is moderate to high risk due to potential for worsening resp status and start of radiation treatment. Mr. Contreras is doing better with Valium though still has pain. He has radiation this afternoon. Less hemoptysis now. Still with cough. No fever or chills but WBC still elevated. Exam alert. Comfortable Heart irreg Lungs diminished I/P 1. Postobstructive pneumonia on R 2. Cavitary lung mass 3. Anxiety Further diagnoses and plan as above.
--- NOTE | 2016-10-14 09:53 | ECHO - Doppler Report ---
Echocardiogram Name: Delonte Zuniga Diane Date of Study: 10/13/2016 Date: 1965 Ht: 70.0 in Medical Record#: [id number] Age: 51 Wt: 176.0 lb Gender: Male BSA: 1.98 Order #: [id number] Location: [facility] Room #: [id number] Reading Physician: Tarik Ball DO, DEDE GRAY Bearing Maker: Ananya Lozoya RDCS Ordering Physician: Benjie Abdullahi DO Primary Physician: Jojo Prieto CNP Indications: New Onset AFIB Impressions: Technically sub-optimal due to poor echocardiographic windows. LVEF 55-60%. Not all LV segments were well visualized, but overall systolic function is normal. Indeterminate diastolic function. Right ventricle not well visualized in most views, but appeared to be normal in size and function in the subcostal views. Mildly dilated left atrium. No evidence of pulmonary hypertension. No significant valvular dysfunction. Findings: Study Quality * Technically sub-optimal due to poor echocardiographic windows. ECG Findings * Atrial fibrillation. Left Ventricle * LVEF 55-60%. * Not all LV segments were well visualized, but overall systolic function is normal. * Indeterminate diastolic function. Right Ventricle * Right ventricle not well visualized in most views, but appeared to be normal in size and function in the subcostal views. Left Atrium * Mildly dilated left atrium. Right Atrium * Mildly dilated right atrium. Interatrial Septum * No evidence of PFO by color Doppler. Aortic Valve * Trileaflet aortic valve with normal function. * No aortic regurgitation. * No aortic stenosis. Mitral Valve * Normal mitral valve structure and function. * No mitral regurgitation. * No mitral stenosis. Tricuspid Valve * Normal tricuspid valve structure and function. * Trace tricuspid regurgitation. * No evidence of pulmonary hypertension. Pulmonic Valve * Pulmonic valve is not well visualized. * No pulmonic regurgitation. Aorta * Normally sized aortic root. Pericardium * The pericardium appears normal. IVC * Normal IVC dimensions and inspiratory collapse. Pulmonary Artery * Normal visualized portions of the main pulmonary artery. History Hypertension Family History of CAD Measurements: BP: 120/ 96 2D Normal Values RVIDd: 3.11 cm <2.7 cm IVSd: .98 cm 0.6 - 1.0 cm LVIDd: 4.71 cm 3.7 - 5.6 cm LVPWd: .98 cm 0.6 - 1.1 cm LVIDs: 3.54 cm 1.5 - 3.6 cm AO: 2.60 cm < 4.0 cm LA: 4.00 cm 2.0 - 4.0cm %FS: 24.80 cm >25 % LA volume: 45 Mitral Valve Peak E:1.26 m/sec Peak E' Lat Clyde:17 cm/s Peak E' Med Clyde:15.5 cm/s E/E' Lat Ratio:7.4 E/E' Med Ratio:8.1 Tricuspid Valve TV Regurg Peak Grad: 14.00mmHg TV Regurg Peak Clyde: 1.85m/sec Updated by Tarik Ball DO, FACCatrina, DEDE, MYLES on 10/14/2016 9:46:14 AM electronically signed on 10/14/2016 9:47:06 AM with status of Final Wall Motion Faustin: 1=Normal, 2=Hypokinesis, 3=Akinesis, 4=Dyskinesis, 5=Aneurysmal, 6=Hyperkinetic, X=Not Visualized (Blank)=Missing
[2016-10-14] MEDS: Gabapentin 300 MG CAPSULE PO SCH ×3 (10:51→20:38)
[2016-10-14] MEDS: Chloraseptic Spray 177 ML BOTTLE MM PRN (10:51)
[2016-10-14] MEDS ORDERED: *HR* Morphine 2 MG/ML SYRINGE IVP PRN (11:13)
--- NOTE | 2016-10-14 19:37 | Oncology Inp Progress Note ---
Date of Encounter: 10/14/16 Time of Encounter: 19:28 (1) Squamous cell carcinoma of lung, stage III Current Visit: Yes Status: Acute Assessment and plan: CT scan showing a 7.9 x 7.7 cm right lower lobe lung mass with right hilar adenopathy measuring 3.4 x 3 cm in size and mediastinal lymphadenopathy at the level of the froy measuring 2.2 m size, radiographically T3 N2 stage IIIa. PET imaging completed 10/12 shows uptake in the right lower lobe cavitary mass lesion right hilar lymph node and in the subcarinal region lymphadenopathy showing metabolic uptake. Also seen was an indeterminate 2 cm lesion in the mid right kidney. Bronchoscopy on 10/12/16 with biopsy revealing positive malignant cells consistent with squamous cell carcinoma He was started on radiation on 10/13/2016 on account of significant hemoptysis/ bleeding. We will add chemotherapy week 2 of radiation. Obtain MRI of the brain to complete staging and MRI of kidney to evaluate kidney lesion seen on PET scan. Qualifiers: Laterality: right Qualified Code(s): C34.91 - Malignant neoplasm of unspecified part of right bronchus or lung Oncology: Subj Interval history: Patient continues to cough up blood but this is improving. - Constitutional Vitals: Vital Signs Temp Pulse Resp BP Pulse Ox 10/14/16 16:14 97.5 F L 113 16 108/80 96 10/14/16 11:47 97.8 F 96 16 101/75 98 10/14/16 08:38 95 10/14/16 07:06 98.6 F 90 16 114/82 100 10/14/16 05:00 97.6 F 105 17 114/85 99 10/13/16 20:45 90 Intake and Output 10/14/16 10/14/16 10/14/16 07:59 15:59 23:59 Intake Total 1350 / 1350 1260 / 1260 Output Total 0 / 0 Balance 1350 / 1350 1260 / 1260 Intake: IV Fluids 1350 / 1350 900 / 900 0.9 % Sodium Chloride 1, 1000 / 1000 800 / 800 000 ML @ 75 mls/hr IVC . [id number] [facility] Rx#: [id number] Zosyn 3.375 GM In 100 / 100 100 / 100 Dextrose 5% (Minibag+) 100 ML 100 ML @ 25 mls/hr IVPB Q8HR [facility] Rx#: [id number] Vancocin 1,000 MG In 250 / 250 Dextrose 5% 250 ML @ 167 mls/hr IVPB Q12H [facility] Rx#: [id number] Oral 0 / 0 360 / 360 Output: Urine 0 / 0 Other: Meal Lunch Percent of Meal Consumed 100% Weight 80.7 kg Patient Weight 10/14/16 23:59 Weight 80.7 kg General appearance: average body habitus, cooperative, no febrile, no no acute distress - Head Head exam: Present: atraumatic, normal inspection - Eye Eye exam: Present: EOMI, normal appearance - ENT ENT exam: Present: mucous membranes moist, normal exam, normal external ear exam , normal oropharynx - Neck Neck exam: Absent: lymphadenopathy, tenderness - Respiratory Respiratory exam: Present: CTAB - Cardiovascular Cardiovascular exam: Present: RRR, +S1, +S2 - GI/Abdominal GI/Abdominal exam: Present: soft, tenderness. Absent: distended, organomegaly, pulsatile mass - Extremities Exam Extremities exam: Present: full ROM, normal inspection. Absent: pedal edema - Neurological Exam Neurological exam: Present: alert, oriented X3, no focal deficits - Psychiatric Psychiatric exam: Present: normal affect, normal mood Oncology: Obj Data - Labs CBC & Chem 7: 10/14/16 20:40 10/14/16 03:18 Labs: Laboratory Results - last 24 hr 10/14/16 10/14/16 03:18 03:18 WBC 26.6 H RBC 3.80 L Hgb 10.7 L Hct 32.3 L MCV 85.0 MCH 28.2 MCHC 33.1 RDW 13.9 Plt Count 349 MPV 10.2 Immature Gran % 1.0 Seg Neutrophils % 90.6 Lymphocytes % 4.8 Monocytes % 3.5 Eosinophils % 0.0 Basophils % 0.1 Neutrophils # 24.1 H Lymphocytes # 1.3 Monocytes # 0.9 Eosinophils # 0.0 Basophils # 0.0 Platelet Estimate Normal Sodium 139 Potassium 3.8 D Chloride 109 Carbon Dioxide 27 BUN 22 Creatinine 0.90 Est GFR ( Amer) > 60 Est GFR (Non-Af Amer) > 60 BUN/Creatinine Ratio 24 Glucose 107 H Calculated Osmolality 292 Calcium 9.7 Magnesium 1.8 - ABG Interpretation ABG results: PT/INR, D-dimer PT 16.8 Seconds (9.4-12.1) H 10/13/16 03:20 Consult Discharge Plan - Plan Referrals: NO,PCP [Non-Partnered Physician] -
[2016-10-14 20:57] LABS: Hematocrit 34.8 % (37.5-50.1); Hemoglobin 11.1 g/dL (12.9-16.9)
[2016-10-15] MEDS: Piperacillin/Tazobactam 3.375 GM in D5% in Water (Mini-Bag+) 100 ML IVPB SCH ×4 (01:00→23:11)
[2016-10-15] MEDS: Vancomycin 1,000 MG in D5% in Water 250 ML IVPB SCH ×2 (01:01→18:06)
[2016-10-15] MEDS: *HR* OxyCODONE/APAP 7.5/325 TABLET PO PRN ×3 (01:49→20:56)
[2016-10-15] MEDS: diazePAM 5 MG TABLET PO PRN ×3 (01:49→20:56)
[2016-10-15] MEDS ORDERED: 0.9 % Sodium Chloride 500 ML IVC ONE (03:40)
[2016-10-15 05:41] LABS: Basophils % 0.1 %; Eosinophils % 0.2 %; Hemoglobin 10.9 g/dL (12.9-16.9); Immature Granulocytes % 0.7 % (0-4); Lymphocytes # 1.4 K/mcL (0.6-4.6); Lymphocytes % 8.5 %; Mean Corpuscular Hemoglobin 28.4 pg (28.0-33.3); Mean Corpuscular Volume 85.9 fL (83.0-100.0); Mean Platelet Volume 9.7 fL (9.4-12.4); Monocytes # 1.1 K/mcL (0.0-1.3); Monocytes % 6.6 %; Neutrophils # 13.6 K/mcL (1.6-8.9); Platelet Count 282 K/mcL (140-400); Red Blood Count 3.84 M/mcL (4.19-5.50); Red Cell Distribution Width 13.8 % (11.5-14.5); Segmented Neutrophils % 83.9 %
[2016-10-15 05:58] LABS: BUN/Creatinine Ratio 21 (6-26); Blood Urea Nitrogen 16 mg/dL (8-26); Calcium 9.2 mg/dL (8.6-10.8); Carbon Dioxide 28 mEq/L (19-29); Chloride 107 mEq/L (98-109); Glucose 84 mg/dL (70-99); Magnesium 1.4 mg/dL (1.6-2.6); Osmolality,Calculated 288 (280-300); Potassium 3.4 mEq/L (3.5-4.5); Sodium 139 mEq/L (136-145); eGFR For African Americans > 60 (> 60); eGFR For Non-African Americans > 60 (> 60)
[2016-10-15] MEDS: Ascorbic Acid 500 MG TABLET PO SCH (08:26)
[2016-10-15] MEDS: Multivit/Ca/Min/Fe/FA 1 TAB TABLET PO SCH (08:26)
[2016-10-15] MEDS: Gabapentin 300 MG CAPSULE PO SCH ×3 (08:26→20:52)
[2016-10-15] MEDS: Magnesium Oxide 400 MG TABLET PO SCH (08:26)
[2016-10-15] MEDS ORDERED: Magnesium Sulfate 1 GM in D5% in Water 100 ML IVPB ONE (10:29)
--- NOTE | 2016-10-15 12:26 | Oncology Inp Progress Note ---
Date of Encounter: 10/15/16 (1) Squamous cell carcinoma of lung, stage III Current Visit: Yes Status: Acute Assessment and plan: CT scan showing a 7.9 x 7.7 cm right lower lobe lung mass with right hilar adenopathy measuring 3.4 x 3 cm in size and mediastinal lymphadenopathy at the level of the froy measuring 2.2 m size, radiographically T3 N2 stage IIIa. PET imaging completed 10/12 shows uptake in the right lower lobe cavitary mass lesion right hilar lymph node and in the subcarinal region lymphadenopathy showing metabolic uptake. Also seen was an indeterminate 2 cm lesion in the mid right kidney. Bronchoscopy on 10/12/16 with biopsy revealing positive malignant cells consistent with squamous cell carcinoma He was started on radiation on 10/13/2016 on account of significant hemoptysis/ bleeding. We will add chemotherapy week 2 of radiation. Obtain MRI of the brain to complete staging and MRI of kidney to evaluate kidney lesion seen on PET scan. Qualifiers: Laterality: right Qualified Code(s): C34.91 - Malignant neoplasm of unspecified part of right bronchus or lung - Constitutional Vitals: Vital Signs Temp Pulse Resp BP Pulse Ox 10/15/16 11:55 97.5 F L 62 22 118/92 96 10/15/16 08:00 93 10/15/16 07:57 125 18 107/90 10/15/16 04:00 98.6 F 134 20 93/67 93 10/14/16 20:26 95 10/14/16 20:00 98.2 F 95 16 99/88 96 10/14/16 16:14 97.5 F L 113 16 108/80 96 Intake and Output 10/14/16 10/15/16 10/15/16 23:59 07:59 15:59 Intake Total 350 / 350 100 / 100 0 / 0 Output Total 375 / 375 Balance -25 / -25 100 / 100 0 / 0 Intake: IV Fluids 350 / 350 100 / 100 Zosyn 3.375 GM In 100 / 100 100 / 100 Dextrose 5% (Minibag+) 100 ML 100 ML @ 25 mls/hr IVPB Q8HR [facility] Rx#: [id number] Vancocin 1,000 MG In 250 / 250 Dextrose 5% 250 ML @ 167 mls/hr IVPB Q12H [facility] Rx#: [id number] Oral 0 / 0 0 / 0 Output: Urine 375 / 375 Other: Meal NPO Percent of Meal Consumed 0% Weight 82.5 kg Patient Weight 10/15/16 23:59 Weight 82.5 kg Oncology: Obj Data - Labs CBC & Chem 7: 10/15/16 05:30 10/15/16 05:30 Labs: Laboratory Results - last 24 hr 10/14/16 10/15/16 10/15/16 20:40 05:30 05:30 WBC 16.2 H RBC 3.84 L Hgb 11.1 L 10.9 L Hct 34.8 L 33.0 L MCV 85.9 MCH 28.4 MCHC 33.0 RDW 13.8 Plt Count 282 MPV 9.7 Immature Gran % 0.7 Seg Neutrophils % 83.9 Lymphocytes % 8.5 Monocytes % 6.6 Eosinophils % 0.2 Basophils % 0.1 Neutrophils # 13.6 H Lymphocytes # 1.4 Monocytes # 1.1 Eosinophils # 0.0 Basophils # 0.0 Sodium 139 Potassium 3.4 L Chloride 107 Carbon Dioxide 28 BUN 16 Creatinine 0.78 Est GFR ( Amer) > 60 Est GFR (Non-Af Amer) > 60 BUN/Creatinine Ratio 21 Glucose 84 Calculated Osmolality 288 Calcium 9.2 Magnesium 1.4 L - ABG Interpretation ABG results: PT/INR, D-dimer PT 16.8 Seconds (9.4-12.1) H 10/13/16 03:20 Consult Discharge Plan - Plan Referrals: NO,PCP [Non-Partnered Physician] -
--- NOTE | 2016-10-15 15:37 | Internal Med Progress Note ---
Date of Encounter: 10/15/16 Time of Encounter: 09:30 - Assessment and plan (1) Pneumonia Current Visit: No Status: Acute Assessment and plan: Seems to be slowly improving on IV abx. His WBC has decreased to 16 today. Continue same abx today and reassess tomorrow. ? home on IV abx versus PO. Qualifiers: Pneumonia type: due to other aerobic Gram-negative bacteria Laterality: right Lung location: lower lobe of lung Qualified Code(s): J15.6 - Pneumonia due to other aerobic Gram-negative bacteria (2) Lung mass Current Visit: No Status: Acute Assessment and plan: Biopsy positive for squamous cell. Receiving radiation at this. Plan is for chemo next week. (3) Atrial fibrillation Current Visit: Yes Status: Acute Assessment and plan: Had episode last night but has resolved. No anticoagulation due to hemoptysis. Holding on Cardizem due to BP. Following closely. Qualifiers: Atrial fibrillation type: paroxysmal Qualified Code(s): I48.0 - Paroxysmal atrial fibrillation (4) Hemoptysis Current Visit: Yes Status: Acute Assessment and plan: Hemoglobin stable. Symptoms improving with radiation therapy. (5) Hypokalemia Current Visit: Yes Status: Acute Assessment and plan: Replace. (6) Tobacco abuse Current Visit: Yes Status: Chronic (7) Acute renal failure Current Visit: Yes Status: Resolved Assessment and plan: Resolved. Qualifiers: Acute renal failure type: unspecified Qualified Code(s): N17.9 - Acute kidney failure, unspecified (8) Hypertension Current Visit: Yes Status: Chronic Assessment and plan: Continue following. BP has been on low side. Qualifiers: Hypertension type: essential hypertension Qualified Code(s): I10 - Essential (primary) hypertension - Subjective Interval history: Mr. Contreras is currently admitted for acute hemoptysis related to metastatic lung cancer. He is high risk due to potential for worsening respiratory and cardiac status. Mr. Contreras had a long night and his heartrate was elevated. His hemoptysis seems to be improving. No fever or chills. Still coughing a lot. No GI symptoms. - Constitutional Vitals: Temp Pulse Resp BP Pulse Ox 97.5 F L 62 22 118/92 96 10/15/16 11:55 10/15/16 13:10 10/15/16 13:10 10/15/16 13:10 10/15/16 13:10 General appearance: Present: A&O X 3, answers questions appropriately - Head Head exam: Present: normocephalic - Eye Eye exam: Present: conjuntiva pink - ENT ENT exam: Present: mucous membranes dry - Respiratory Respiratory exam: Present: decreased breath sounds, wheezes - Cardiovascular Cardiovascular exam: Present: irregular rhythm. Absent: tachycardia - GI/Abdominal GI/Abdominal exam: Present: soft. Absent: tenderness - Extremities Exam Extremities exam: Present: warm. Absent: pedal edema - Neurological Exam Neurological exam: Present: alert, oriented X3, no focal deficits - Skin Skin exam: Present: warm. Absent: rash Internal Medicine: Result - Labs CBC & Chem 7: 10/15/16 05:30 10/15/16 05:30 Labs: Short CBC 10/14/16 10/15/16 Range/Units 20:40 05:30 WBC 16.2 H (4.3-11.1) K/mcL Hgb 11.1 L 10.9 L (12.9-16.9) g/dL Hct 34.8 L 33.0 L (37.5-50.1) % Plt Count 282 (140-400) K/mcL Neutrophils # 13.6 H (1.6-8.9) K/mcL BMP 10/15/16 05:30 Sodium 139 Potassium 3.4 L Chloride 107 Carbon Dioxide 28 BUN 16 Creatinine 0.78 Glucose 84 Calcium 9.2 - ABG Interpretation ABG results: PT/INR, D-dimer PT 16.8 Seconds (9.4-12.1) H 10/13/16 03:20 - VTE Documentation of Mechanical Device: Graduated compression elastic hosiery Consult Discharge Plan - Plan Referrals: NO,PCP [Non-Partnered Physician] -
[2016-10-16] MEDS: Vancomycin 1,000 MG in D5% in Water 250 ML IVPB SCH ×2 (03:02→14:49)
[2016-10-16 03:35] LABS: Basophils % 0.1 %; Eosinophils # 0.1 K/mcL (0.0-0.6); Eosinophils % 0.7 %; Hematocrit 33.5 % (37.5-50.1); Hemoglobin 11.1 g/dL (12.9-16.9); Immature Granulocytes % 0.9 % (0-4); Lymphocytes # 1.8 K/mcL (0.6-4.6); Lymphocytes % 10.2 %; Mean Corpuscular HGB Conc 33.1 g/dL (31.6-35.5); Mean Corpuscular Volume 84.6 fL (83.0-100.0); Mean Platelet Volume 9.9 fL (9.4-12.4); Monocytes % 5.8 %; Neutrophils # 14.9 K/mcL (1.6-8.9); Platelet Count 357 K/mcL (140-400); Red Blood Count 3.96 M/mcL (4.19-5.50); Red Cell Distribution Width 13.7 % (11.5-14.5); Segmented Neutrophils % 82.3 %
[2016-10-16 03:53] LABS: Alanine Aminotransferase 28 Units/L (0-55); Albumin/Globulin Ratio 0.6 (1.1-2.2); Alkaline Phosphatase 95 Units/L (38-126); Aspartate Amino Transferase 24 Units/L (5-34); BUN/Creatinine Ratio 16 (6-26); Bilirubin,Total 0.8 mg/dL (0.2-1.2); Blood Urea Nitrogen 12 mg/dL (8-26); Calcium 9.1 mg/dL (8.6-10.8); Carbon Dioxide 27 mEq/L (19-29); Chloride 109 mEq/L (98-109); Globulin 3.6 g/dL (2.4-3.5); Glucose 93 mg/dL (70-99); Magnesium 1.8 mg/dL (1.6-2.6); Osmolality,Calculated 289 (280-300); Potassium 3.6 mEq/L (3.5-4.5); Sodium 140 mEq/L (136-145); Total Protein 5.6 g/dL (6.0-8.3); eGFR For African Americans > 60 (> 60); eGFR For Non-African Americans > 60 (> 60)
[2016-10-16] MEDS: diazePAM 5 MG TABLET PO PRN ×3 (05:03→23:06)
[2016-10-16] MEDS: *HR* OxyCODONE/APAP 7.5/325 TABLET PO PRN ×3 (05:03→23:06)
[2016-10-16] MEDS: Piperacillin/Tazobactam 3.375 GM in D5% in Water (Mini-Bag+) 100 ML IVPB SCH ×3 (09:43→23:07)
[2016-10-16] MEDS: Magnesium Oxide 400 MG TABLET PO SCH (09:43)
[2016-10-16] MEDS: Multivit/Ca/Min/Fe/FA 1 TAB TABLET PO SCH (09:43)
[2016-10-16] MEDS: Ascorbic Acid 500 MG TABLET PO SCH (09:43)
[2016-10-16] MEDS: Gabapentin 300 MG CAPSULE PO SCH ×3 (09:43→20:16)
--- NOTE | 2016-10-16 15:34 | Internal Med Progress Note ---
<Benjie Abdullahi - Last Filed: 10/16/16 15:32> Date of Encounter: 10/16/16 Time of Encounter: 14:50 - Assessment and plan (1) Hemoptysis Current Visit: Yes Status: Acute Assessment and plan: Hemoglobin stable. Symptoms improving with radiation therapy. (2) Lung mass Current Visit: No Status: Acute Assessment and plan: Biopsy positive for squamous cell adenoca. Brain MRI no evidence of mets Receiving radiation at this. Plan is for chemo on week 2 of radiation therapy (3) Sepsis Current Visit: Yes Status: Acute Assessment and plan: Evidenced by hypotension, tachycardia, suspected source postobstructive pneumonia. Initial Leukocytosis WBC 30,000. Sputum Cx nml upper resp duarte. In setting of his persistent leukocytosis ~18,000 with pleurisy and post- obstructive component, cont Broad spectrum Abx at this time. Qualifiers: Sepsis type: sepsis due to unspecified organism Qualified Code(s): A41.9 - Sepsis, unspecified organism (4) Obstructive pneumonia Current Visit: Yes Status: Acute Assessment and plan: Cont Broad spectrum abx per above, suspect likely malignancy. On discharge, consider deescalation to levaquin, augmentin Chest CTA 10/11/16 11:57 IMPRESSION: 1. New extensive consolidation within the right middle and right lower lobes with tree-in-bud opacities throughout the remainder of the right lung as well as mild tree-in-bud opacities in the left lung. Findings are compatible with multifocal pneumonia. 2. Nondiagnostic study for evaluation of pulmonary embolism. 3. Stable small right pleural effusion. 4. Again seen is a large cavitary mass in the right lower lobe extending towards the right hilum as well as mediastinal and right hilar lymphadenopathy. Findings are consistent with malignancy as evaluated on recent PET-CT. Chest X-Ray 10/12/16 12:45 IMPRESSION: No substantial change in right pleural effusion. (5) Atrial fibrillation Current Visit: Yes Status: Acute Assessment and plan: Had episode last night but has resolved. No anticoagulation due to hemoptysis. Holding on Cardizem due to BP. Following closely. 10/16, introducing cardizem 60mg x 1. Qualifiers: Atrial fibrillation type: paroxysmal Qualified Code(s): I48.0 - Paroxysmal atrial fibrillation (6) Acute renal failure Current Visit: Yes Status: Resolved Assessment and plan: Resolved. Qualifiers: Acute renal failure type: unspecified Qualified Code(s): N17.9 - Acute kidney failure, unspecified (7) DVT prophylaxis Current Visit: Yes Status: Acute Assessment and plan: IPCs 2* to hemoptysis. - Subjective Interval history: Pt seen/eval, he would report no further hemoptysis, no further blood-tinged sputum since 5AM of 10/15, Hgb remains steady. He is eager to go home, though resting HR 130-140's. - Constitutional Vitals: Temp Pulse Resp BP Pulse Ox 98.6 F 117 16 112/77 98 10/16/16 06:43 10/16/16 06:43 10/16/16 06:43 10/16/16 06:43 10/16/16 06:43 General appearance: Present: A&O X 3, answers questions appropriately - Head Head exam: Present: atraumatic, normocephalic - Eye Eye exam: Present: EOMI, sclera anicteric - ENT ENT exam: Present: mucous membranes moist - Neck Neck exam general surgery: Present: supple, trachea midline - Respiratory Respiratory exam: Present: decreased breath sounds (RLL), rhonchi (pronounced RLL), wheezes (scant) - Cardiovascular Cardiovascular exam: Present: irregular rhythm, +S1, +S2, tachycardia - GI/Abdominal GI/Abdominal exam: Present: soft, no peritoneal signs. Absent: tenderness - Extremities Exam Extremities exam: Present: warm, radial pulses palpable and symetrical. Absent : pedal edema Internal Medicine: Result - Labs CBC & Chem 7: 10/16/16 03:00 10/16/16 03:00 Labs: Short CBC 10/16/16 Range/Units 03:00 WBC 18.1 H (4.3-11.1) K/mcL Hgb 11.1 L (12.9-16.9) g/dL Hct 33.5 L (37.5-50.1) % Plt Count 357 (140-400) K/mcL Neutrophils # 14.9 H (1.6-8.9) K/mcL BMP 10/16/16 03:00 Sodium 140 Potassium 3.6 Chloride 109 Carbon Dioxide 27 BUN 12 Creatinine 0.76 Glucose 93 Calcium 9.1 Liver Function 10/16/16 Range/Units 03:00 Total Bilirubin 0.8 (0.2-1.2) mg/dL AST 24 (5-34) Units/L ALT 28 (0-55) Units/L Alkaline Phosphatase 95 (38-126) Units/L Albumin 2.0 L (3.5-5.0) g/dL - ABG Interpretation ABG results: PT/INR, D-dimer PT 16.8 Seconds (9.4-12.1) H 10/13/16 03:20 - Impressions Impressions Abdomen MRI 10/14/16 21:13 IMPRESSION: Study is significantly motion compromise. Numerous lesions are noted within the kidneys bilaterally. The majority of these do not appear to enhance. The lesion with within the inferior portion of the right kidney demonstrates a multilocular appearance with indeterminate enhancement features given motion. This could be considered a Bosniak class III or III-F cyst. CT imaging using renal mass protocol may be beneficial in this patient given the degree of motion artifact observed on MRI if additional imaging evaluation is clinically required. Incidental note of probable enhancing lesions within the L1 vertebral body and possibly L5 vertebral body. D/ / 10/15/2016 21:26:18 Bethel Edwards MD / [email or web address] Interpreting Provider: Bethel Edwards MD Brain MRI 10/14/16 21:13 IMPRESSION: No intracranial metastases identified. D/ / Nestor Tolentino MD / Nestor Tolentino MD Interpreting Provider: Nestor Tolentino MD - VTE Documentation of Mechanical Device: Graduated compression elastic hosiery Consult Discharge Plan - Plan Referrals: NO,PCP [Non-Partnered Physician] - <Reddy Yoder - Last Filed: 10/16/16 18:08> Date of Encounter: 10/16/16 - Assessment and plan (1) Pneumonia Current Visit: Yes Status: Acute Assessment and plan: On IV abx. Plan to transition to PO. Qualifiers: Pneumonia type: due to other aerobic Gram-negative bacteria Laterality: right Lung location: lower lobe of lung Qualified Code(s): J15.6 - Pneumonia due to other aerobic Gram-negative bacteria (2) Lung mass Current Visit: No Status: Acute (3) Atrial fibrillation Current Visit: Yes Status: Acute Qualifiers: Atrial fibrillation type: paroxysmal Qualified Code(s): I48.0 - Paroxysmal atrial fibrillation (4) Hemoptysis Current Visit: Yes Status: Acute (5) Hypokalemia Current Visit: Yes Status: Acute (6) Tobacco abuse Current Visit: Yes Status: Chronic (7) Acute renal failure Current Visit: Yes Status: Resolved Qualifiers: Acute renal failure type: unspecified Qualified Code(s): N17.9 - Acute kidney failure, unspecified (8) Hypertension Current Visit: Yes Status: Chronic Qualifiers: Hypertension type: essential hypertension Qualified Code(s): I10 - Essential (primary) hypertension - Constitutional Vitals: Temp Pulse Resp BP Pulse Ox 98.6 F 117 16 112/77 98 10/16/16 06:43 10/16/16 06:43 10/16/16 06:43 10/16/16 06:43 10/16/16 06:43 Internal Medicine: Result - Labs CBC & Chem 7: 10/16/16 03:00 10/16/16 03:00 Labs: Short CBC 10/16/16 Range/Units 03:00 WBC 18.1 H (4.3-11.1) K/mcL Hgb 11.1 L (12.9-16.9) g/dL Hct 33.5 L (37.5-50.1) % Plt Count 357 (140-400) K/mcL Neutrophils # 14.9 H (1.6-8.9) K/mcL BMP 10/16/16 03:00 Sodium 140 Potassium 3.6 Chloride 109 Carbon Dioxide 27 BUN 12 Creatinine 0.76 Glucose 93 Calcium 9.1 Liver Function 10/16/16 Range/Units 03:00 Total Bilirubin 0.8 (0.2-1.2) mg/dL AST 24 (5-34) Units/L ALT 28 (0-55) Units/L Alkaline Phosphatase 95 (38-126) Units/L Albumin 2.0 L (3.5-5.0) g/dL - ABG Interpretation ABG results: PT/INR, D-dimer PT 16.8 Seconds (9.4-12.1) H 10/13/16 03:20 - Impressions Impressions Abdomen MRI 10/14/16 21:13 IMPRESSION: Study is significantly motion compromise. Numerous lesions are noted within the kidneys bilaterally. The majority of these do not appear to enhance. The lesion with within the inferior portion of the right kidney demonstrates a multilocular appearance with indeterminate enhancement features given motion. This could be considered a Bosniak class III or III-F cyst. CT imaging using renal mass protocol may be beneficial in this patient given the degree of motion artifact observed on MRI if additional imaging evaluation is clinically required. Incidental note of probable enhancing lesions within the L1 vertebral body and possibly L5 vertebral body. D/ / 10/15/2016 21:26:18 Bethel Edwards MD / [email or web address] Interpreting Provider: Bethel Edwards MD Brain MRI 10/14/16 21:13 IMPRESSION: No intracranial metastases identified. D/ / Nestor Tolentino MD / Nestor Tolentino MD Interpreting Provider: eNstor Tolentino MD - Attending Attestation I examined this patient and my medical decision-making was reviewed with the Resident Physician on 10/16/16. I agree with the documented findings, disposition and treatment plan as described except to the extent set forth below. Mr. Contreras is currently admitted for hemoptysis related to metastatic lung cancer. He also has rapid a fib. He is high risk due to potential for worsening pulmonary and cardiac issues as well as cardizem drip. Mr. Contreras has minimal hemoptysis now. He has no fever but he still has rapid a fib. Still with cough. No GI symptoms. Tolerating IV abx. Exam Alert Comfortable Heart irreg and tachy Mucus membranes dry Lungs with some wheeze I/P 1. Hemoptysis - improving 2. Metastatic lung cancer 3. Rapid a fib Further diagnoses and plan as above.
--- NOTE | 2016-10-16 17:48 | Oncology Inp Progress Note ---
Date of Encounter: 10/16/16 Time of Encounter: 11:00 (1) Squamous cell carcinoma of lung, stage III Status: Acute Assessment and plan: CT scan showing a 7.9 x 7.7 cm right lower lobe lung mass with right hilar adenopathy measuring 3.4 x 3 cm in size and mediastinal lymphadenopathy at the level of the froy measuring 2.2 m size, radiographically T3 N2 stage IIIa. PET imaging completed 10/12 shows uptake in the right lower lobe cavitary mass lesion right hilar lymph node and in the subcarinal region lymphadenopathy showing metabolic uptake. Also seen was an indeterminate 2 cm lesion in the mid right kidney. Bronchoscopy on 10/12/16 with biopsy revealing positive malignant cells consistent with squamous cell carcinoma. MRI of the brain was negative for metastatic disease. MRI abdomen to evaluate kidney lesion was inconclusive. He was started on radiation on 10/13/2016 on account of significant hemoptysis/ bleeding. We will add chemotherapy on week 2 of radiation. Discussed with patient treatment with concurrent weekly carboplatin/paclitaxel, and he was provided with informational material. Qualifiers: Laterality: right Qualified Code(s): C34.91 - Malignant neoplasm of unspecified part of right bronchus or lung Oncology: Subj Interval history: Patient is doing well. Has no new complaint - Constitutional Vitals: Vital Signs Temp Pulse Resp BP Pulse Ox 10/16/16 06:43 98.6 F 117 16 112/77 98 10/16/16 05:10 98.8 F 129 14 92/71 94 10/15/16 21:00 97.6 F 156 20 110/95 92 Intake and Output 10/16/16 10/16/16 10/16/16 07:59 15:59 23:59 Intake Total 550 / 550 580 / 580 Output Total 0 / 0 Balance 550 / 550 580 / 580 Intake: IV Fluids 350 / 350 100 / 100 Zosyn 3.375 GM In 100 / 100 100 / 100 Dextrose 5% (Minibag+) 100 ML 100 ML @ 25 mls/hr IVPB Q8HR NIRANJAN Rx#: [id number] Vancocin 1,000 MG In 250 / 250 Dextrose 5% 250 ML @ 167 mls/hr IVPB Q12H NIRANJAN Rx#: [id number] Oral 200 / 200 480 / 480 Output: Urine 0 / 0 Other: Meal Lunch Percent of Meal Consumed 5% # Voids 3 Weight 85 kg Patient Weight 10/16/16 23:59 Weight 85 kg - Head Head exam: Present: normal inspection - Eye Eye exam: Present: EOMI - Neck Neck exam: Absent: lymphadenopathy - Respiratory Respiratory exam: Present: CTAB - Cardiovascular Cardiovascular exam: Present: RRR, +S1, +S2 - GI/Abdominal GI/Abdominal exam: Present: soft. Absent: organomegaly, pulsatile mass, tenderness Oncology: Obj Data - Labs CBC & Chem 7: 10/17/16 01:29 10/17/16 01:29 Labs: Laboratory Results - last 24 hr 10/16/16 10/16/16 03:00 03:00 WBC 18.1 H RBC 3.96 L Hgb 11.1 L Hct 33.5 L MCV 84.6 MCH 28.0 MCHC 33.1 RDW 13.7 Plt Count 357 MPV 9.9 Immature Gran % 0.9 Seg Neutrophils % 82.3 Lymphocytes % 10.2 Monocytes % 5.8 Eosinophils % 0.7 Basophils % 0.1 Neutrophils # 14.9 H Lymphocytes # 1.8 Monocytes # 1.0 Eosinophils # 0.1 Basophils # 0.0 Immature Plt Fraction 3.0 Sodium 140 Potassium 3.6 Chloride 109 Carbon Dioxide 27 BUN 12 Creatinine 0.76 Est GFR ( Amer) > 60 Est GFR (Non-Af Amer) > 60 BUN/Creatinine Ratio 16 Glucose 93 Calculated Osmolality 289 Calcium 9.1 Magnesium 1.8 Total Bilirubin 0.8 AST 24 ALT 28 Alkaline Phosphatase 95 Serum Total Protein 5.6 L Albumin 2.0 L Globulin 3.6 H Albumin/Globulin Ratio 0.6 L - Impressions Impressions Abdomen MRI 10/14/16 21:13 IMPRESSION: Study is significantly motion compromise. Numerous lesions are noted within the kidneys bilaterally. The majority of these do not appear to enhance. The lesion with within the inferior portion of the right kidney demonstrates a multilocular appearance with indeterminate enhancement features given motion. This could be considered a Bosniak class III or III-F cyst. CT imaging using renal mass protocol may be beneficial in this patient given the degree of motion artifact observed on MRI if additional imaging evaluation is clinically required. Incidental note of probable enhancing lesions within the L1 vertebral body and possibly L5 vertebral body. D/ / 10/15/2016 21:26:18 Bethel Edwards MD / [email or web address] Interpreting Provider: Bethel Edwards MD Brain MRI 10/14/16 21:13 IMPRESSION: No intracranial metastases identified. D/ / Nestor Tolentino MD / Nestor Tolentino MD Interpreting Provider: Nestor Tolentino MD - ABG Interpretation ABG results: PT/INR, D-dimer PT 16.8 Seconds (9.4-12.1) H 10/13/16 03:20 Consult Discharge Plan - Plan Instructions: Diltiazem (By mouth), Oxycodone/Acetaminophen (By mouth), Laxative, Stimulant (By mouth), Levofloxacin (By mouth), Acute Kidney Injury (DC ), Sepsis (DC), Chronic Hypertension (DC), Pneumonia (DC) Referrals: [facility] [Provider Group] (f/u 1-2 weeks, lung cancer with hemoptysis) [facility] [Provider Group] (f/u 1-2 weeks, lung cancer with hemoptysis.) NO,PCP [Non-Partnered Physician] - Prescriptions: Diltiazem CD (24hr) [Cardizem CD] 180 mg PO DAILY #30 cap.er.24h Levofloxacin 750 mg PO DAILY #2 tablet Nicotine Patch [Nicoderm] 14 mg TD DAILY #20 patch.td24 OxyCODONE/APAP 7.5/325 [Percocet 7.5/325 MG] 1 each PO Q6HR PRN #10 tablet PRN Reason: Mild To Moderate Pain Sennosides/Docusate Sodium [Senna Plus] 2 each PO BID #40 tablet
[2016-10-16] MEDS ORDERED: 0.9 % Sodium Chloride 1,000 ML ONE (17:51)
[2016-10-16] MEDS ORDERED: 0.9 % Sodium Chloride 1,000 ML IVC SCH (18:15)
[2016-10-17 01:48] LABS: Basophils % 0.1 %; Eosinophils # 0.2 K/mcL (0.0-0.6); Eosinophils % 1.7 %; Hematocrit 31.5 % (37.5-50.1); Hemoglobin 10.3 g/dL (12.9-16.9); Immature Granulocytes % 0.7 % (0-4); Lymphocytes # 1.2 K/mcL (0.6-4.6); Lymphocytes % 8.5 %; Mean Corpuscular HGB Conc 32.7 g/dL (31.6-35.5); Mean Corpuscular Hemoglobin 27.5 pg (28.0-33.3); Mean Platelet Volume 9.8 fL (9.4-12.4); Monocytes # 0.6 K/mcL (0.0-1.3); Monocytes % 4.4 %; Neutrophils # 11.4 K/mcL (1.6-8.9); Platelet Count 272 K/mcL (140-400); Red Blood Count 3.75 M/mcL (4.19-5.50); Red Cell Distribution Width 13.8 % (11.5-14.5); Segmented Neutrophils % 84.6 %
[2016-10-17 02:00] LABS: BUN/Creatinine Ratio 12 (6-26); Blood Urea Nitrogen 9 mg/dL (8-26); Calcium 8.9 mg/dL (8.6-10.8); Carbon Dioxide 25 mEq/L (19-29); Chloride 108 mEq/L (98-109); Glucose 109 mg/dL (70-99); Osmolality,Calculated 291 (280-300); Potassium 3.4 mEq/L (3.5-4.5); Sodium 141 mEq/L (136-145); eGFR For African Americans > 60 (> 60); eGFR For Non-African Americans > 60 (> 60)
[2016-10-17] MEDS: Vancomycin 1,000 MG in D5% in Water 250 ML IVPB SCH (02:22)
[2016-10-17] MEDS: *HR* OxyCODONE/APAP 7.5/325 TABLET PO PRN (04:24)
[2016-10-17] MEDS: Chloraseptic Spray 177 ML BOTTLE MM PRN (05:53)
[2016-10-17 06:38] VITALS: BP 119/66
[2016-10-17] MEDS: Ascorbic Acid 500 MG TABLET PO SCH (07:40)
[2016-10-17] MEDS: diazePAM 5 MG TABLET PO PRN (07:40)
[2016-10-17] MEDS: Magnesium Oxide 400 MG TABLET PO SCH (07:40)
[2016-10-17] MEDS: Gabapentin 300 MG CAPSULE PO SCH (07:40)
[2016-10-17] MEDS: Piperacillin/Tazobactam 3.375 GM in D5% in Water (Mini-Bag+) 100 ML IVPB SCH (07:40)
[2016-10-17] MEDS ORDERED: Diltiazem CD (24hr) 180 MG CAPSULE PO SCH (07:49)
--- NOTE | 2016-10-17 08:04 | Discharge Summary ---
<Benjie Abdullahi - Last Filed: 10/17/16 07:59> Date of Encounter: 10/17/16 Time of Encounter: 08:00 - Discharge Diagnosis (1) Hemoptysis Priority: Primary Status: Acute (2) Lung mass Priority: Primary Status: Acute (3) Sepsis Priority: Primary Status: Acute Qualifiers: Sepsis type: sepsis due to unspecified organism Qualified Code(s): A41.9 - Sepsis, unspecified organism (4) Obstructive pneumonia Priority: Primary Status: Acute (5) Atrial fibrillation Priority: Secondary Status: Acute Qualifiers: Atrial fibrillation type: paroxysmal Qualified Code(s): I48.0 - Paroxysmal atrial fibrillation (6) Acute renal failure Priority: Primary Status: Resolved Qualifiers: Acute renal failure type: unspecified Qualified Code(s): N17.9 - Acute kidney failure, unspecified (7) DVT prophylaxis Priority: Secondary Status: Acute - Discharge Medications Prescriptions: OxyCODONE/APAP 7.5/325 [Percocet 7.5/325 MG] 1 each PO Q6HR PRN #10 tablet PRN Reason: Mild To Moderate Pain Diltiazem CD (24hr) [Cardizem CD] 180 mg PO DAILY #30 cap.er.24h Levofloxacin 750 mg PO DAILY #2 tablet Nicotine Patch [Nicoderm] 14 mg TD DAILY #20 patch.td24 Sennosides/Docusate Sodium [Senna Plus] 2 each PO BID #40 tablet Home Medications: Amlodipine Besylate 10 mg PO DAILY 09/22/16 [History] Ascorbate Calcium [Vitamin C] 500 mg PO DAILY 09/22/16 [History] Aspirin 81 mg PO DAILY 09/22/16 [History] ClonazePAM [Klonopin] 1 mg PO QID 09/22/16 [History] Multivitamin [Multi-Day Vitamins] 1 tab PO DAILY 09/22/16 [History] Albuterol Sulfate [Ventolin Hfa] 2 puff IH Q4H PRN 10/12/16 [History] Buprenorphine HCl [Subutex] 8 mg SL DAILY 10/12/16 [History] Fluticasone/Salmeterol [Advair 250-50 Diskus] 1 puff IH BID 10/12/16 [History] Lisinopril [Zestril] 20 mg PO DAILY 10/12/16 [History] Metoprolol [Lopressor] 25 mg PO BID 10/12/16 [History] Diltiazem CD (24hr) [Cardizem CD] 180 mg PO DAILY #30 cap.er.24h 10/17/16 [Rx] Levofloxacin 750 mg PO DAILY #2 tablet 10/17/16 [Rx] Nicotine Patch [Nicoderm] 14 mg TD DAILY #20 patch.td24 10/17/16 [Rx] OxyCODONE/APAP 7.5/325 [Percocet 7.5/325 MG] 1 each PO Q6HR PRN #10 tablet 10/17 [Rx] Sennosides/Docusate Sodium [Senna Plus] 2 each PO BID #40 tablet 10/17/16 [Rx] Allergies/Adverse Reactions: Allergies No Known Allergies Allergy (Verified 10/11/16 11:18) Procedures/tests Complete & Pending: Procedures Performed prior 72 hours Category Date Time Status MR abdomen wo/w con [MR] Routine MRI 10/14/16 21:13 Completed MR head/brain wo/w con [MR] Routine MRI 10/14/16 21:13 Completed Date of admission: 10/11/16 17:01 Primary care physician: Jojo Prieto CNP Consults: 10/12/16 13:58 Consult to Speech Therapy [CONS] Routine Comment: Evaluate, develop and implement POC Reason for Consult: Large R. lung mass, s/p bronchoscopy, concern aspiration , appreciate eval Call Completed: No 10/12/16 14:13 Consult to PICC team [Consult to Invasive Line Access Team] [CONS] Routine Reason for Consult: Active hemoptysis, complicated pneumonia, need for multiple lab draws and abx. Discussed with Dr. Yoder Line Type: PICC PICC line indications: Frequent Blood Sampling Call Completed: No 10/12/16 15:36 Consult to Pulmonology [CONS] Routine Consulting Provider: [facility] [place] Reason for Consult: Gross hemoptysis with large RLL lesion, likely malignancy. Bronch. Appreciate recs. Time Notified: 09:30 Call Completed: Yes 10/12/16 16:26 Consult to Oncology [CONS] Routine Consulting Provider: [facility] Reason for Consult: large Right LL mass, previous PET positive, s/p bronchoscopy, here with gross hemoptysis. Consider need for radiation therapy. Call Completed: Yes 10/12/16 16:39 Consult to Radiation Oncology [Consult to Oncology Radiation] [CONS] Routine Consulting Provider: [facility] [place] Reason for Consult: gross hemoptysis, underwent bronch with APC, but large cavitary lesion. Prior PET scan positive. Discussed with Dr. Dallas, d/w Dr. Farias as well. Time Notified: 16:30 Call Completed: Yes 10/13/16 11:32 Consult to Cte Teacher [CONS] Routine Reason for SW Consult: Home O2 needs. 10/15/16 10:49 Consult to Occupational Therapy [CONS] Routine Comment: Evaluate, develop and implement POC Consult to Physical Therapy [CONS] Routine Comment: Evaluate, develop and implement POC Discharging clinician: Reddy Yoder Anticipated date of discharge: 10/17/16 - Patient Status Disposition: Home, Self-Care Condition: Fair Functional capacity at discharge: independent ambulation Overall status at discharge: patient is progressing back to baseline - Discharge Instructions Instructions: Diltiazem (By mouth), Oxycodone/Acetaminophen (By mouth), Laxative, Stimulant (By mouth), Levofloxacin (By mouth), Acute Kidney Injury (DC ), Sepsis (DC), Chronic Hypertension (DC), Pneumonia (DC) Follow Up With: NO,PCP [Non-Partnered Physician] - [facility] [place] [Provider Group] (f/u 1-2 weeks, lung cancer with hemoptysis.) [facility] [Provider Group] (f/u 1-2 weeks, lung cancer with hemoptysis) - Diet and Activity Activity: increase activity as tolerated Diet: advance to your usual diet Hospital course: Mr. Contreras is a 51 year old male. Patient would present to [facility] with chief concern: Hemoptysis, Likely from invasive mass eroding into bronchial vasculature. Comorbidities include: current smoker, HTN. Smoked 1ppd since age of 9, sometimes 2ppd. 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 Would endorse 3 weeks of subjective fever, night sweats, 6# wt loss. Formerly seen by [facility] oncologist Dr. Farias, would have prior Chest CT and PET scan revealing increased activity RML RLL, subcarinal LAD. Was awaiting on bronchoscopy with transbronchial bx. Hospital course: Hgb was monitored. He would be started on levaquin, vanc and zosyn for consideration of postobstructive pneumonia. Imaging studies disclosed: Chest X-Ray 10/13/16 07:00 IMPRESSION: Stable chest. Stable cardiomegaly. Known lung mass at the right lung base. Atelectasis and small pleural effusion at the right lung base. Increased lung markings at the right parahilar region, likely related to pneumonia. Abdomen MRI 10/14/16 21:13 IMPRESSION: Study is significantly motion compromise. Numerous lesions are noted within the kidneys bilaterally. The majority of these do not appear to enhance. The lesion with within the inferior portion of the right kidney demonstrates a multilocular appearance with indeterminate enhancement features given motion. This could be considered a Bosniak class III or III-F cyst. CT imaging using renal mass protocol may be beneficial in this patient given the degree of motion artifact observed on MRI if additional imaging evaluation is clinically required. Incidental note of probable enhancing lesions within the L1 vertebral body and possibly L5 vertebral body. Brain MRI 10/14/16 21:13 IMPRESSION: No intracranial metastases identified. Pulmonology consult for hemoptysis, underwent bronchoscopy with BAL and biopsies obtained, biopsy revealing positive malignant cells consistent with squamous cell carcinoma. Would recommend that the complicated pleural effusion which is mixed to the cavitary lesion, not amenable to thoracentesis. Radiation Oncology consulted for continued hemoptysis. He would have radiation therapy and hemoptysis would resolve. Oncology consulted for recommendations regarding staging and chemotherapy. Brain MRI negative for mets. Would recommend add chemotherapy week 2 of radiation. Patient would have Afib with heart rate 110's, likely 2* to postobstructive pneumonia with tumor burden. He did have HR in 140's, prompting cardizem gtt. Echo disclosed EF 55-60%, mildly dilated left atrium, no evidence pulmonary HTN , no significant VHD. He is not a candidate for anticoagulation due to his hemoptysis. Cardizem was converted from IV to PO on discharge, day of discharge he was improved. At time of discharge, patient was clinically improved, hemodynamically stable, progressing to baseline, and agreeable with plan of care. Patient was advised to seek immediate medical attention for any new or worsening symptoms including but not limited to fever, chills, chest pain, chest pressure, dyspnea, cough, abdominal pain, nausea, vomiting, diarrhea, bloody stool, urine and the patient voiced understanding. Patient will follow-up with Oncology at [facility], Radiation Oncology. Finish 2 more days of Levaquin. Underwent 6 min walk, did not need supplemental oxygen on discharge. OARRS reviewed and appropriate. He has significant tumor burden right middle and lower lung producing pronounced pleurisy. Appropriate for narcotic medication for symptomatic relief until returning for chemo/radiation therapy. Time spent discussing smoking cessation with patient: more than 10 minutes - Time Spent with Patient Total time spent providing and/or coordinating discharge services: Greater than 30 minutes - Constitutional Vitals: Temp Pulse Resp BP Pulse Ox 97.5 F L 118 16 119/66 94 10/16/16 20:15 10/17/16 05:00 10/17/16 05:00 10/17/16 05:00 10/17/16 05:00 General appearance: Present: A&O X 3, answers questions appropriately - Head Head exam: Present: atraumatic, normocephalic - Eye Eye exam: Present: EOMI, sclera anicteric - ENT ENT exam: Present: mucous membranes moist, normal oropharynx (no signs of bleed) - Neck Neck exam general surgery: Present: supple, trachea midline - Respiratory Respiratory exam: Present: decreased breath sounds (RLL), rhonchi (scant, pronounced RML RLL). Absent: wheezes - Cardiovascular Cardiovascular exam: Present: +S1, +S2, tachycardia (100's) - GI/Abdominal GI/Abdominal exam: Present: soft, no peritoneal signs. Absent: tenderness - Extremities Exam Extremities exam: Present: warm, radial pulses palpable and symetrical. Absent : pedal edema - Neurological Exam Neurological exam: Present: no focal deficits, strengths equal and symetr throughout - VTE Documentation of Mechanical Device: Graduated compression elastic hosiery <Reddy Yoder - Last Filed: 10/17/16 17:56> Date of Encounter: 10/17/16 - Discharge Diagnosis (1) Pneumonia Priority: Primary Status: Acute Qualifiers: Pneumonia type: due to other aerobic Gram-negative bacteria Laterality: right Lung location: lower lobe of lung Qualified Code(s): J15.6 - Pneumonia due to other aerobic Gram-negative bacteria (2) Lung mass Status: Acute (3) Atrial fibrillation Status: Acute Qualifiers: Atrial fibrillation type: paroxysmal Qualified Code(s): I48.0 - Paroxysmal atrial fibrillation (4) Hemoptysis Status: Acute (5) Hypokalemia Priority: Secondary Status: Resolved (6) Tobacco abuse Priority: Secondary Status: Chronic (7) Hypertension Priority: Secondary Status: Chronic Qualifiers: Hypertension type: essential hypertension Qualified Code(s): I10 - Essential (primary) hypertension Procedures/tests Complete & Pending: Procedures Performed prior 72 hours Category Date Time Status MR abdomen wo/w con [MR] Routine MRI 10/14/16 21:13 Completed MR head/brain wo/w con [MR] Routine MRI 10/14/16 21:13 Completed Date of admission: 10/11/16 17:01 Primary care physician: Jojo Prieto CNP Consults: 10/12/16 13:58 Consult to Speech Therapy [CONS] Routine Comment: Evaluate, develop and implement POC Reason for Consult: Large R. lung mass, s/p bronchoscopy, concern aspiration , appreciate eval Call Completed: No 10/12/16 14:13 Consult to PICC team [Consult to Invasive Line Access Team] [CONS] Routine Reason for Consult: Active hemoptysis, complicated pneumonia, need for multiple lab draws and abx. Discussed with Dr. Yoder Line Type: PICC PICC line indications: Frequent Blood Sampling Call Completed: No 10/12/16 15:36 Consult to Pulmonology [CONS] Routine Consulting Provider: [facility] Reason for Consult: Gross hemoptysis with large RLL lesion, likely malignancy. Bronch. Appreciate recs. Time Notified: 09:30 Call Completed: Yes 10/12/16 16:26 Consult to Oncology [CONS] Routine Consulting Provider: [facility] Reason for Consult: large Right LL mass, previous PET positive, s/p bronchoscopy, here with gross hemoptysis. Consider need for radiation therapy. Call Completed: Yes 10/12/16 16:39 Consult to Radiation Oncology [Consult to Oncology Radiation] [CONS] Routine Consulting Provider: [facility] Reason for Consult: gross hemoptysis, underwent bronch with APC, but large cavitary lesion. Prior PET scan positive. Discussed with Dr. Dallas, d/w Dr. Farias as well. Time Notified: 16:30 Call Completed: Yes 10/13/16 11:32 Consult to Cte Teacher [CONS] Routine Reason for SW Consult: Home O2 needs. 10/15/16 10:49 Consult to Occupational Therapy [CONS] Routine Comment: Evaluate, develop and implement POC Consult to Physical Therapy [CONS] Routine Comment: Evaluate, develop and implement POC Hospital course: Mr. Contreras is a 51 year old male - Time Spent with Patient Total time spent providing and/or coordinating discharge services: 38min - Constitutional Vitals: Temp Pulse Resp BP Pulse Ox 97.5 F L 118 16 119/66 94 10/16/16 20:15 10/17/16 05:00 10/17/16 05:00 10/17/16 05:00 10/17/16 05:00 - Attending Attestation I examined this patient and my medical decision-making was reviewed with the Resident Physician on 10/17/16. I agree with the documented findings, disposition and treatment plan as described except to the extent set forth below. Mr. Contreras feels OK today. No new issues. No hemoptysis. No fever or chills. He is ready to go home. Exam Alert. Comfortable Heart reg Some wheeze heard Plan D/C home today on PO abx To follow with oncology and radiation.
[2016-10-17] MEDS ORDERED: Aminoglycoside Consult 1 EACH MC ONE (09:59)
[2016-10-17] MEDS ORDERED: Multivit/Ca/Min/Fe/FA 1 TAB TABLET PO SCH (12:00)
[2016-10-18] MEDS ORDERED: Doxycycline 100 MG CAPSULE PO SCH (09:00)
[2016-10-18] MEDS ORDERED: levoFLOXacin 750 MG TABLET PO SCH (09:00)
== END 2016-10-17 10:00 | disposition home or self-care (01) | DRG 720 ==
LOC: 2NENU
PROVIDERS: ADMIT Internal Medicine Endocrinology, Diabetes & Metabolism; ATTEND Internal Medicine
PROC: ENDOBRF (2016-10-12 11:00)
PROC: ENDOLBX (2016-10-12 11:00)

== ENCOUNTER 2016-10-29 10:08 | Observation (INO) ==
[2016-10-29] MEDS ORDERED: 0.9 % Sodium Chloride 1,000 ML IVC ONE (10:37)
[2016-10-29] MEDS ORDERED: Diltiazem CD (24hr) 180 MG CAPSULE PO STA (10:54)
--- NOTE | 2016-10-29 10:57 | Emergency Department Note ---
Disposition Clinical Impression: Atrial fibrillation with RVR, Solitary pulmonary nodule, Pleural effusion Cancer of lung Qualifiers: Laterality: right Lung location: unspecified part of lung Qualified Code(s): C34.91 - Malignant neoplasm of unspecified part of right bronchus or lung Disposition: Admitted As Inpatient Condition: Fair Arrhythmia/Palpitations HPI - General Chief Complaint: ED Arrhythmia/Palpitations Stated Complaint: Elevated HR Time Seen by Provider: 10/29/16 10:27 Source: patient Limitations: no limitations Nursing Notes Reviewed: Yes Vital Signs Reviewed: Yes - History of Present Illness HPI Narrative: He has a history of lung cancer diagnosed several weeks ago and also 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 He is supposed to be taking Cardizem and Lopressor but has not taken those medications today. He states that he is asymptomatic and specifically denies any chest pain or any new worsening shortness of breath. No chest pain or tightness or discomfort or pressure. He is due to start chemotherapy tomorrow for his lung cancer. No pain or swelling of the lower extremities. Social history: Smoker but is only smoking 1 cigarette per day - Related Data Home Medications Medication Instructions Recorded Confirmed Amlodipine Besylate 10 mg PO DAILY 09/22/16 10/29/16 Ascorbate Calcium [Vitamin C] 500 mg PO DAILY 09/22/16 10/29/16 Aspirin 81 mg PO DAILY 09/22/16 10/29/16 ClonazePAM [Klonopin] 1 mg PO QID 09/22/16 10/29/16 Multivitamin [Multi-Day Vitamins] 1 tab PO DAILY 09/22/16 10/29/16 Albuterol Sulfate [Ventolin Hfa] 2 puff IH Q4H PRN 10/12/16 10/29/16 Buprenorphine HCl [Subutex] 8 mg SL QWEEK 10/12/16 10/29/16 Fluticasone/Salmeterol [Advair 1 puff IH BID 10/12/16 10/29/16 250-50 Diskus] Lisinopril [Zestril] 20 mg PO DAILY 10/12/16 10/29/16 Metoprolol [Lopressor] 25 mg PO BID 10/12/16 10/29/16 Cyanocobalamin (B-12) [Vitamin B12] 1,000 mcg PO DAILY 10/29/16 10/29/16 Ergocalciferol (VITAMIN D2) 50,000 unit PO Q2W 10/29/16 10/29/16 [Vitamin D2] Ibuprofen [Motrin] 200 mg PO Q4HR 10/29/16 10/29/16 Oxycodone HCl/Acetaminophen 1 each PO Q6H 10/29/16 10/29/16 [Percocet 5-325 mg Tablet] Sennosides/Docusate Sodium [Senna 2 tab PO BID 10/29/16 10/29/16 Plus] Previous Rx's Medication Instructions Recorded Diltiazem CD (24hr) [Cardizem CD] 180 mg PO DAILY #30 cap.er.24h 10/17/16 Nicotine Patch [Nicoderm] 14 mg TD DAILY #20 patch.td24 10/17/16 Allergies Allergy/AdvReac Type Severity Reaction Status Date / Time No Known Allergies Allergy Verified 10/11/16 11:18 Review of Systems: Constitutional: No fever Vision: No new blurred vision ENT: No rhinorrhea Respiratory: No cough Allergic: No allergies : No blood in urine GI: No blood in stool Hematologic: No bruising Dermatologic: No skin rash Musculoskeletal: No pain in the extremities Neuro: No numbness of the extremities Past Medical History - Past Medical History Medical history: Reports: cancer, hypertension Surgical history: Reports: appendectomy, herniorrhaphy (Had hiatel hernia repair - dehiscence after with repair.), orthopedic, other (L knee meniscus) Psychiatric history: Reports: anxiety - Social History Smoking Status: Current every day smoker Smokeless Tobacco Status: No Alcohol use: Reports: none Drug use: Reports: marijuana Physical Exam CONSTITUTIONAL: Alert and oriented X3, well-nourished, well appearing, in no apparent distress HEAD: Normocephalic; atraumatic. EYES: PERRL, no scleral icterus. NOSE: The nose is normal in appearance without rhinorrhea RESP: Normal chest excursion with respiration; breath sounds do reveal crackles left lower lung field with minimal wheezing and some hyperresonance sounds on the right CARD: Regular rhythm, without murmurs, rub or gallop ABD: Non-distended; non-tender, soft,without rigidity, rebound or guarding SKIN: Normal for age and race; warm and dry; no apparent lesions EXTREMITIES: Pulses are 2 plus and equal times 4 extremities, no peripheral edema or calf muscle pain. - General Limitations: no limitations General appearance: alert Course Vital Signs Temperature 98.2 F 10/29/16 10:11 Pulse Rate 135 10/29/16 10:11 Respiratory Rate 18 10/29/16 10:11 Blood Pressure 115/95 10/29/16 10:11 O2 Sat by Pulse Oximetry 94 10/29/16 10:11 Temperature 98.4 F 10/29/16 19:16 Pulse Rate 105 10/29/16 19:16 Respiratory Rate 20 10/29/16 19:16 Blood Pressure 106/70 10/29/16 19:16 O2 Sat by Pulse Oximetry 96 10/29/16 19:16 Oxygen Delivery Oxygen Delivery Nasal Cannula Arrhythmia/Palpitations - [facility] Narrative Medical decision making narrative: Patient does have atrial fibrillation with rapid ventricular response on his EKG with a rate of 134 bpm with nonspecific T-wave change and the patient does have a history of A. fib and has not taken his medications today so the oral medications will be given to the patient. Labs are pending. Chest x-ray has been reviewed. Likely the patient will be able to have his effusion drained and with his medications hopefully the heart rate will decrease and this will be reassessed per the patient is asymptomatic at this time. 1059 - Medical Records Medical records reviewed: Yes I reviewed the patient's medical records. - Lab Data Lab results reviewed: Yes I reviewed the patient's lab results. Result diagrams: 10/29/16 11:14 10/29/16 11:14 Lab Results 10/29/16 10/29/16 10/29/16 Range/Units 11:14 11:14 11:14 WBC 11.0 (4.3-11.1) K/mcL RBC 4.04 L (4.19-5.50) M/mcL Hgb 11.0 L (12.9-16.9) g/dL Hct 34.8 L (37.5-50.1) % MCV 86.1 (83.0-100.0) fL MCH 27.2 L (28.0-33.3) pg MCHC 31.6 (31.6-35.5) g/dL RDW 15.2 H (11.5-14.5) % Plt Count 281 (140-400) K/mcL MPV 9.6 (9.4-12.4) fL Immature Gran % 0.6 (0-4) % Seg Neutrophils % 87.4 % Lymphocytes % 4.1 % Monocytes % 7.6 % Eosinophils % 0.2 % Basophils % 0.1 % Neutrophils # 9.6 H (1.6-8.9) K/mcL Lymphocytes # 0.5 L (0.6-4.6) K/mcL Monocytes # 0.8 (0.0-1.3) K/mcL Eosinophils # 0.0 (0.0-0.6) K/mcL Basophils # 0.0 (0.0-0.2) K/mcL PT (9.4-12.1) Seconds INR APTT (26.0-36.0) Seconds Sodium 136 (136-145) mEq/L Potassium 3.7 (3.5-4.5) mEq/L Chloride 102 (98-109) mEq/L Carbon Dioxide 24 (19-29) mEq/L BUN 9 (8-26) mg/dL Creatinine 0.76 (0.72-1.25) mg/dL Est GFR ( Amer) > 60 (> 60) Est GFR (Non-Af Amer) > 60 (> 60) BUN/Creatinine Ratio 12 (6-26) Glucose 95 (70-99) mg/dL Calculated Osmolality 280 (280-300) Calcium 8.8 (8.6-10.8) mg/dL Troponin I 0.01 (0-0.03) ng/mL 10/29/16 Range/Units 11:14 WBC (4.3-11.1) K/mcL RBC (4.19-5.50) M/mcL Hgb (12.9-16.9) g/dL Hct (37.5-50.1) % MCV (83.0-100.0) fL MCH (28.0-33.3) pg MCHC (31.6-35.5) g/dL RDW (11.5-14.5) % Plt Count (140-400) K/mcL MPV (9.4-12.4) fL Immature Gran % (0-4) % Seg Neutrophils % % Lymphocytes % % Monocytes % % Eosinophils % % Basophils % % Neutrophils # (1.6-8.9) K/mcL Lymphocytes # (0.6-4.6) K/mcL Monocytes # (0.0-1.3) K/mcL Eosinophils # (0.0-0.6) K/mcL Basophils # (0.0-0.2) K/mcL PT 15.9 H (9.4-12.1) Seconds INR 1.5 APTT 26.1 (26.0-36.0) Seconds Sodium (136-145) mEq/L Potassium (3.5-4.5) mEq/L Chloride (98-109) mEq/L Carbon Dioxide (19-29) mEq/L BUN (8-26) mg/dL Creatinine (0.72-1.25) mg/dL Est GFR ( Amer) (> 60) Est GFR (Non-Af Amer) (> 60) BUN/Creatinine Ratio (6-26) Glucose (70-99) mg/dL Calculated Osmolality (280-300) Calcium (8.6-10.8) mg/dL Troponin I (0-0.03) ng/mL - Radiology Data Chest X-Ray 10/29/16 10:37 IMPRESSION: 1. Large right pleural effusion, increased in size from previous exam, with dense atelectasis/consolidation involving the right lower lobe and right middle lobe. D/ / 10/29/2016 11:19:54 Emile Srivastava MD / benedicto Interpreting Provider: Emile Srivastava MD Pulmonary Perfusion Imaging 10/29/16 13:33 IMPRESSION: Low probability for pulmonary embolism. D/ / Randell Ho MD / Randell Ho MD Interpreting Provider: Randell Ho MD Chest CT 10/29/16 13:49 IMPRESSION: 1. Stable approximate 9 cm necrotic mass within the right lower lobe, consistent with primary lung cancer, with interval increase in amount of central necrosis and liquefaction since the prior exam. 2. Interval development of now complete consolidation of the right middle lobe since the prior exam, with complete obstruction of the right middle lobe bronchus. This could represent postoperative collapse secondary to tumoral involvement of the right middle lobe bronchus, diffuse tumor involvement of the right middle lobe, or underlying pneumonia. Continued imaging follow-up is suggested, and consider bronchoscopy for further evaluation. 3. Interval increase in size of a now moderate size right pleural effusion, likely malignant. 4. Stable metastatic mediastinal lymphadenopathy. 5. Significant interval improvement in appearance of diffuse tree-in-bud opacities as seen within the right upper lobe on the prior study, which are likely infectious or inflammatory in etiology on the prior exam. 6. New small pericardial effusion. 7. Stable mild gastrohepatic ligament lymphadenopathy. D/ / 10/29/2016 15:01:31 Joni Livingston MD / Purvi Loyola Interpreting Provider: Joni Livingston MD
[2016-10-29 11:23] LABS: Basophils % 0.1 %; Eosinophils % 0.2 %; Hematocrit 34.8 % (37.5-50.1); Immature Granulocytes % 0.6 % (0-4); Lymphocytes # 0.5 K/mcL (0.6-4.6); Lymphocytes % 4.1 %; Mean Corpuscular HGB Conc 31.6 g/dL (31.6-35.5); Mean Corpuscular Hemoglobin 27.2 pg (28.0-33.3); Mean Corpuscular Volume 86.1 fL (83.0-100.0); Mean Platelet Volume 9.6 fL (9.4-12.4); Monocytes # 0.8 K/mcL (0.0-1.3); Monocytes % 7.6 %; Neutrophils # 9.6 K/mcL (1.6-8.9); Platelet Count 281 K/mcL (140-400); Red Blood Count 4.04 M/mcL (4.19-5.50); Red Cell Distribution Width 15.2 % (11.5-14.5); Segmented Neutrophils % 87.4 %
[2016-10-29 11:35] LABS: BUN/Creatinine Ratio 12 (6-26); Blood Urea Nitrogen 9 mg/dL (8-26); Calcium 8.8 mg/dL (8.6-10.8); Carbon Dioxide 24 mEq/L (19-29); Chloride 102 mEq/L (98-109); Glucose 95 mg/dL (70-99); Osmolality,Calculated 280 (280-300); Potassium 3.7 mEq/L (3.5-4.5); Sodium 136 mEq/L (136-145); eGFR For African Americans > 60 (> 60); eGFR For Non-African Americans > 60 (> 60)
--- NOTE | 2016-10-29 13:06 | Event Note ---
Date of Encounter: 10/29/16 Time of Encounter: 12:59 Patient seen and examined with nurse practitioner. Recently diagnosed lung cancer is planning to start chemotherapy and radiation and was coming to have a port placed today, found to be an atrial fibrillation with rapid ventricular response so was sent to the emergency room. Patient has increasing right side pleural effusion which appears large. This is likely a malignant effusion. Will consult pulmonology for therapeutic tapping. Patient still has cough with yellowish sputum production and dense consolidation on x-ray so will keep the patient on Zosyn. He is an atrial fibrillation with rapid ventricular response and relatively hypotensive. Will hydrate the patient and give him these digoxin. He is in chronic atrial fibrillation. Pulmonary embolism may be a consideration. He had received several loads of contrast the past couple months. We will get a VQ scan although limitations in this patient. If there is moderate or high probability for PE, CT angiogram of the chest will be performed.
[2016-10-29] MEDS ORDERED: Naloxone 0.4 MG/ML INJ IVP PRN (13:16)
[2016-10-29] MEDS ORDERED: 0.9 % Sodium Chloride 500 ML IVC ONE (13:29)
[2016-10-29] MEDS ORDERED: *HR* Digoxin 0.5 MG/2 ML AMPUL IVP ONE (13:29)
[2016-10-29] MEDS ORDERED: clonazePAM 1 MG TABLET PO STA (13:34)
[2016-10-29] MEDS ORDERED: Pantoprazole 40 MG VIAL IVP ONE (13:45)
[2016-10-29 13:56] LABS: INR 1.5; Prothrombin Time 15.9 Seconds (9.4-12.1)
[2016-10-29 13:58] LABS: Activated Partial Thrombo Time 26.1 Seconds (26.0-36.0)
[2016-10-29] MEDS: Piperacillin/Tazobactam 3.375 GM in D5% in Water (Mini-Bag+) 100 ML IVPB SCH ×2 (14:56→20:57)
--- NOTE | 2016-10-29 16:38 | Pulmonology Consult Note ---
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 Pulmonary status appears to be at baseline. He has a known history of atrial fibrillation and this is not new I do not think any pulmonary intervention at present would alleviate atrial fibrillation or is likely to improve his dyspnea. I evaluated his right-sided effusion and what is notable to me about the right lower lung is at its primarily taken out by tumor he does have an effusion but it is fairly modest when compared to the tumor itself do not think that aspiration of this fluid would be particularly useful at alleviating his symptoms and given size is not a candidate for Pleurx catheter. The patient is clearly agitated at present and only wants to have a procedure done that would result in permanent IV access since "that is why he came here" nevertheless I am happy to look at the effusion if patient is willing and remains in the hospital hospital tomorrow with ultrasound at bedside to see if there is any pocket that is reasonable to attempt to aspiration With regards to his tumor burden in general appears that right middle lobe has involvement were does not previously clearly the most definitive treatment would be radiation and chemotherapy which he is undertaking He does not have an elevated white count and presents no fever and actually feels better than he has in a while so I do not feel that acutely treatment for pneumonia furthermore there has been radiographic improvement in tree-in-bud opacities after prior treatment. But I would defer to the primary service evaluation. Atrial fibrillation management per internal medicine service or cardiology consult if needed Thank you for the consult please call with questions (2) Atrial fibrillation Current Visit: No Status: Acute Qualifiers: Atrial fibrillation type: paroxysmal Qualified Code(s): I48.0 - Paroxysmal atrial fibrillation (3) Hemoptysis Current Visit: No Status: Acute (4) Tobacco abuse Current Visit: No Status: Chronic (5) Obstructive pneumonia Current Visit: No Status: Acute (6) Cavitary lesion of lung Current Visit: No Status: Acute (7) Squamous cell carcinoma of lung, stage III Current Visit: No Status: Acute Qualifiers: Laterality: right Qualified Code(s): C34.91 - Malignant neoplasm of unspecified part of right bronchus or lung History of Present Illness Consult date: 10/29/16 Requesting physician: Omari Guzman Reason for consult: abnormal CXR/CT Chief complaint: "I need a PICC Line" History of present illness: This is a 51-year-old gentleman with history of tobacco abuse with known primary squamous cell lung carcinoma. He was initially evaluated by the pulmonary service in the outpatient clinic as part of evaluation of right lung mass. He presented to the hospital in the middle of last month with increased dyspnea pneumonia and massive hemoptysis underwent bronchoscopy which was notable for significant involvement of right lower lobe with tumor. Subsequent to that he is started chemoradiation he was going to go to interventional radiation today however when he arrived for permanent access for chemotherapy he was noted to have atrial fibrillation with rapid ventricular response and was transferred to the ED where I had the pleasure of meeting him During our conversation it was quite evident that the patient is very upset with being admitted to the emergency department and plans to admit to the floor. He states that he only came here to have a "PICC line put in" but now he is being evaluated for his heart rate he says he actually feels better than he has in a long time he has chronic dyspnea but this is no worse than baseline. He is not endorsing any fevers or chills or hemoptysis today he denies cough he continues to smoke 1 cigarette a day and use VAPE once a day. The pulmonary service was consulted to evaluate for thoracentesis for right- sided (presumed malignant) effusion Past Med Surg Social Fam HX - Past Medical History Medical history: cancer, hypertension Psychiatric history: anxiety - Past Surgical History Surgical History: appendectomy, herniorrhaphy, orthopedic, other - Social History Smoking Status: Current every day smoker Smokeless Tobacco Status: No Alcohol use: none Drug use: marijuana - Family History Father Hx Family Cardiac Disorders: Yes Mother Living Status: Still Living Hx Family Cardiac Disorders: No Hx Family Endocrine Disorder: No Hx Family Neurologic Disorders: Yes Hx Family Medical Disorders: Yes Medications and Allergies Amlodipine Besylate 10 mg PO DAILY 09/22/16 [History] Ascorbate Calcium [Vitamin C] 500 mg PO DAILY 09/22/16 [History] Aspirin 81 mg PO DAILY 09/22/16 [History] ClonazePAM [Klonopin] 1 mg PO QID 09/22/16 [History] Multivitamin [Multi-Day Vitamins] 1 tab PO DAILY 09/22/16 [History] Albuterol Sulfate [Ventolin Hfa] 2 puff IH Q4H PRN 10/12/16 [History] Buprenorphine HCl [Subutex] 8 mg SL QWEEK 10/12/16 [History] Fluticasone/Salmeterol [Advair 250-50 Diskus] 1 puff IH BID 10/12/16 [History] Lisinopril [Zestril] 20 mg PO DAILY 10/12/16 [History] Metoprolol [Lopressor] 25 mg PO BID 10/12/16 [History] Diltiazem CD (24hr) [Cardizem CD] 180 mg PO DAILY #30 cap.er.24h 10/17/16 [Rx] Nicotine Patch [Nicoderm] 14 mg TD DAILY #20 patch.td24 10/17/16 [Rx] Cyanocobalamin (B-12) [Vitamin B12] 1,000 mcg PO DAILY 10/29/16 [History] Ergocalciferol (VITAMIN D2) [Vitamin D2] 50,000 unit PO Q2W 10/29/16 [History] Sennosides/Docusate Sodium [Senna Plus] 2 tab PO BID 10/29/16 [History] Allergies No Known Allergies Allergy (Verified 10/11/16 11:18) All Systems: A 10-system review of systems was performed and is negative for pertinent findings except as documented above in the HPI. Physical Examination Vital Signs: Vital Signs, Last 4 Hours Temp Pulse Resp BP Pulse Ox 10/29/16 16:23 98.7 F 104 20 104/74 98 10/29/16 15:08 0 F L 18 123/95 General appearance: agitated Eyes: nonicteric ENT: oropharynx moist Effort: normal Auscultation: bilateral: diminished breath sounds (Right greater than left no overt wheezing appreciated) Cardiovascular: irregular rhythm Gastrointestinal: normoactive bowel sounds, non-tender Extremities: no edema, no clubbing Musculoskeletal: no deformities normal mental status, non-focal exam other (He has outbursts of anger directed at medical staff for keeping him being here for treatment) Results - Laboratory Findings CBC and BMP: 10/29/16 11:14 10/29/16 11:14 PT/INR, D-dimer PT 15.9 Seconds (9.4-12.1) H 10/29/16 11:14 Abnormal lab findings: Abnormal lab results RBC 4.04 M/mcL (4.19-5.50) L 10/29/16 11:14 Hgb 11.0 g/dL (12.9-16.9) L 10/29/16 11:14 Hct 34.8 % (37.5-50.1) L 10/29/16 11:14 MCH 27.2 pg (28.0-33.3) L 10/29/16 11:14 RDW 15.2 % (11.5-14.5) H 10/29/16 11:14 Neutrophils # 9.6 K/mcL (1.6-8.9) H 10/29/16 11:14 Lymphocytes # 0.5 K/mcL (0.6-4.6) L 10/29/16 11:14 PT 15.9 Seconds (9.4-12.1) H 10/29/16 11:14 - Diagnostic Findings Chest x-ray: report reviewed, image reviewed CT scan - chest: report reviewed, image reviewed - Clinical Findings Intake & Output: Intake & Output 10/29/16 10/29/16 10/29/16 07:59 15:59 23:59 Weight 84.1 kg Consult Discharge Plan - Plan Referrals: Jojo Prieto, [employer] [Primary Care Provider] -
[2016-10-29] MEDS: *HR* Heparin 5,000 UNIT/ML VIAL SQ SCH ×2 (18:36→22:58)
--- NOTE | 2016-10-29 19:18 | Internal Med History&Physical ---
Date of Encounter: 10/29/16 Time of Encounter: 13:00 Assessment and Plan (1) Atrial fibrillation Current visit: Yes Status: Acute Assess: Patient presents from ED from interventional radiology due to atrial fibrillation with rapid ventricular response and a rate in the mid 150s. Patient takes Cardizem and Lopressor daily but reports he has not taken medications today. He states that he is asymptomatic and denies any chest pain , worsening shortness of breath, chest tightness or discomfort, or chest pressure. He currently has no pain or swelling of lower extremities. Plan: Ternd troponins x3 BNP ordered Digoxin 0.25 IVP once ordered Digoxin .125 PO daily ordered Heparin 5,000 units SQ Q8HR ordered Repeat EKG Continuous cardiac monitoring O2 2L ordered with titration if SpO2 <92% Bed rest with assist to bath room Monitor patient's vital signs Qualifiers: Atrial fibrillation type: paroxysmal Qualified Code(s): I48.0 - Paroxysmal atrial fibrillation (2) Pleural effusion Current visit: Yes Status: Acute Assess: Patient presents with shortness of breath related to large right pleural effusion with dense atelectasis/consolidation involving the right lower lobe and right middle lobe. Plan: Pulmonology consult ordered and confirmed O2 2L ordered with titration if SpO2 <92% Monitor patient's SpO2 Monitor patient's vital signs Monitor patient for SOB (3) Hypertension Current visit: Yes Status: Chronic Assess: Patient presents with history of chronic hypertension. Plan: Continue Lopressor Lipid panel ordered Monitor vital signs Qualifiers: Hypertension type: essential hypertension Qualified Code(s): I10 - Essential (primary) hypertension (4) DVT prophylaxis Current visit: Yes Status: Acute Assess: Patient placed on DVT prophylaxis due to Afib RVR status and inpatient bed rest status. Plan: Continue aspirin therapy Heparin 5,000 units SQ Q8HR ordered Internal Medicine - H&P: HPI Chief complaint: Elevated heart rate Admitted From: Emergency Dept Plans for Post Hospital Care: Home History of present illness: Mr. Contreras is a 51 year old male who presents from the ED with chief complaint of elevated heart rate/arrhythmia/palpitations. Patient came to ED from interventional radiology due to atrial fibrillation with rapid ventricular response and a rate in the mid 150s. Patient states he is asymptomatic and denies chest pain or worsening shortness of breath. He also denies chest tightness, discomfort, or pressure. There is no pain or swelling of the lower extremities. Mr. 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 Patient was due to start chemotherapy tomorrow for his lung cancer. Patient was seen for 16 for pneumonia, lung mass, and sepsis. Patient reports he completed antibiotic round for pneumonia treatment. Patient previously smoked one pack of cigarettes per day and now reports he smokes 1 cigarette per day and two vapes. Patient also reports he regurgitates 1/4 to 1/ 2 of everything he eats and drinks several times per day. Patient denies ever having GI scope. Patient admitted inpatient observation status with pulmonology consult ordered and confirmed for large pleural effusion, continuous cardiac monitoring ordered , repeat EKG ordered, digoxin 0.25 mg IVP ordered, digoxin 0.125 mg by mouth daily ordered, heparin 5000 units SQ every 8 hour ordered, and Protonix 40 mg IVP ordered. Patient to be monitored closely. Past Med Surg Social Fam HX - Past Medical History Medical history: cancer, hypertension Psychiatric history: anxiety - Past Surgical History Surgical History: appendectomy, herniorrhaphy, orthopedic, other (Left knee, back surgeries) - Social History Smoking Status: Current every day smoker Packs per day: 1 cigarette per day + 2 vapes daily Smokeless Tobacco Status: No Alcohol use: none Drug use: marijuana Occupational status: unemployed Current living situation: Home - Independent Activity Level: Independent ambulation Recent Out of Country Travel Within the Last 8 Weeks: No Exposure or Possible Exposure to Illness During Travel: No - Family History Father Hx Family Cardiac Disorders: Yes Mother Living Status: Still Living Hx Family Cardiac Disorders: No Hx Family Endocrine Disorder: No Hx Family Neurologic Disorders: Yes Hx Family Medical Disorders: Yes Internal Medicine - H&P: Meds Amlodipine Besylate 10 mg PO DAILY 09/22/16 [History] Ascorbate Calcium [Vitamin C] 500 mg PO DAILY 09/22/16 [History] Aspirin 81 mg PO DAILY 09/22/16 [History] ClonazePAM [Klonopin] 1 mg PO QID 09/22/16 [History] Multivitamin [Multi-Day Vitamins] 1 tab PO DAILY 09/22/16 [History] Albuterol Sulfate [Ventolin Hfa] 2 puff IH Q4H PRN 10/12/16 [History] Buprenorphine HCl [Subutex] 8 mg SL QWEEK 10/12/16 [History] Fluticasone/Salmeterol [Advair 250-50 Diskus] 1 puff IH BID 10/12/16 [History] Lisinopril [Zestril] 20 mg PO DAILY 10/12/16 [History] Metoprolol [Lopressor] 25 mg PO BID 10/12/16 [History] Diltiazem CD (24hr) [Cardizem CD] 180 mg PO DAILY #30 cap.er.24h 10/17/16 [Rx] Nicotine Patch [Nicoderm] 14 mg TD DAILY #20 patch.td24 10/17/16 [Rx] Cyanocobalamin (B-12) [Vitamin B12] 1,000 mcg PO DAILY 10/29/16 [History] Ergocalciferol (VITAMIN D2) [Vitamin D2] 50,000 unit PO Q2W 10/29/16 [History] Sennosides/Docusate Sodium [Senna Plus] 2 tab PO BID 10/29/16 [History] Allergies No Known Allergies Allergy (Verified 10/11/16 11:18) All Systems PM: A 10-system review of systems was performed and is negative for pertinent findings except as documented above in the HPI. - Constitutional Constitutional: no chills, no fever(s), no night sweats - EENT Eyes: no change in vision, no discharge, no pain, no photophobia Ears: no ear discharge, no ear pain, no tinnitus Nose, mouth and throat: no dysphagia, no nasal discharge, no neck pain, no sore throat - Breasts Breasts: as per HPI - Cardiovascular Cardiovascular ROS IM: as per HPI, irregular heart rhythm (Atrial fibrillation with RVR) - Respiratory Respiratory: cough, change in phlegm color (Yellow) - Gastrointestinal Gastrointestinal: as per HPI, vomiting (Patient states that he regurgitates 1/4 to 1/2 of the food and liquids he takes in several times per day since his hernia surgery) - Genitourinary Genitourinary ROS male: as per HPI - Musculoskeletal Musculoskeletal ROS IM: no numbness, no tingling - Integumentary Integumentary IM: no rash, no unusual bruising - Neurological Neurological ROS: no confusion, no convulsions, no focal weakness, no numbness, no tingling, no tremor(s) - Psychiatric Psychiatric: as per HPI - Endocrine Endocrine IM: as per HPI - Hematologic/Lymphatic Hematologic/Lymphatic: no easy bruising - Allergic/Immunologic Allergic/Immunologic: as per HPI - Constitutional Vitals: Temp Pulse Resp BP Pulse Ox 98.7 F 104 20 104/74 98 10/29/16 16:23 10/29/16 16:23 10/29/16 16:23 10/29/16 16:23 10/29/16 16:23 General appearance: Present: cooperative, A&O X 3, answers questions appropriately - Head Head exam: Present: atraumatic, normocephalic - Eye Eye exam: Present: PERRL, conjuntiva pink, sclera anicteric Pupils: Present: PERRL - ENT ENT exam: Present: normal exam, normal external ear exam - Neck Neck exam general surgery: Present: normal inspection, supple, trachea midline. Absent: lymphadenopathy - Respiratory Respiratory exam: Present: CTAB. Absent: accessory muscle use, rales, rhonchi, wheezes - Cardiovascular Cardiovascular exam: Present: irregular rhythm (Atrial fibrillation noted on auscultation) - GI/Abdominal GI/Abdominal exam: Present: normal bowel sounds, soft, no peritoneal signs. Absent: distended, tenderness - Rectal Rectal exam: Present: deferred - Additional comments: exam deferred. - Extremities Exam Extremities exam: Present: warm, radial pulses palpable and symetrical. Absent : calf tenderness, cyanotic, pedal edema - Back Exam Back exam: Present: normal inspection, vertebral tenderness - Neurological Exam Neurological exam: Present: alert, oriented X3, no focal deficits, strengths equal and symetr throughout - Psychiatric Psychiatric exam: Present: anxious, normal affect - Skin Skin exam: Present: dry, intact Internal Med - H&P Results - Labs CBC & Chem 7: 10/29/16 11:14 10/29/16 11:14 Labs: Cardiac Enzymes 10/29/16 Range/Units 18:34 Troponin I 0.00 (0-0.03) ng/mL - EKG Data Prior EKG available for review: yes When compared to previous EKG: there is no significant change EKG comments: 10/29/16 19:26 EKG dated 10/11/16 shows atrial fibrillation with rapid ventricular response. Low QRS voltage in extremity leads. EKG dated 10/29/16 shows atrial fibrillation with rapid ventricular response. Low QRS voltage in extremity leads. - Impressions ITS Impressions Pulmonary Perfusion Imaging 10/29/16 13:33 IMPRESSION: Low probability for pulmonary embolism. D/ / Randell Ho MD / Randell Ho MD Interpreting Provider: Randell Ho MD Chest CT 10/29/16 13:49 IMPRESSION: 1. Stable approximate 9 cm necrotic mass within the right lower lobe, consistent with primary lung cancer, with interval increase in amount of central necrosis and liquefaction since the prior exam. 2. Interval development of now complete consolidation of the right middle lobe since the prior exam, with complete obstruction of the right middle lobe bronchus. This could represent postoperative collapse secondary to tumoral involvement of the right middle lobe bronchus, diffuse tumor involvement of the right middle lobe, or underlying pneumonia. Continued imaging follow-up is suggested, and consider bronchoscopy for further evaluation. 3. Interval increase in size of a now moderate size right pleural effusion, likely malignant. 4. Stable metastatic mediastinal lymphadenopathy. 5. Significant interval improvement in appearance of diffuse tree-in-bud opacities as seen within the right upper lobe on the prior study, which are likely infectious or inflammatory in etiology on the prior exam. 6. New small pericardial effusion. 7. Stable mild gastrohepatic ligament lymphadenopathy. D/ / 10/29/2016 15:01:31 Joni Livingston MD / Purvi Loyola Interpreting Provider: Joni Livingston MD - Diagnostic Studies Chest x-ray Additional comments: 1-View CXR dated 10/29/16 shows large right pleural effusion, increased in size from previous exam with dense atelectasis/consolidation involving the right lower lobe and right middle lobe.
[2016-10-29] MEDS ORDERED: *HR* OxyCODONE/APAP 5/325 TABLET PO ONE (20:18)
[2016-10-29] MEDS: clonazePAM 1 MG TABLET PO SCH (20:57)
[2016-10-29] MEDS ORDERED: Sennosides/Docusate Sodium TABLET PO SCH (21:00)
[2016-10-29] MEDS ORDERED: Fluticasone Propionate Nasal 50 MCG/SPRAY BOTTLE NS SCH (21:00)
[2016-10-29] MEDS ORDERED: *HR* OxyCODONE/APAP 5/325 TABLET PO PRN (21:52)
[2016-10-30] MEDS: Piperacillin/Tazobactam 3.375 GM in D5% in Water (Mini-Bag+) 100 ML IVPB SCH (05:13)
[2016-10-30 06:18] LABS: Alanine Aminotransferase 12 Units/L (0-55); Albumin 2.2 g/dL (3.5-5.0); Albumin/Globulin Ratio 0.6 (1.1-2.2); Alkaline Phosphatase 104 Units/L (38-126); Aspartate Amino Transferase 20 Units/L (5-34); BUN/Creatinine Ratio 12 (6-26); Bilirubin,Total 1.4 mg/dL (0.2-1.2); Blood Urea Nitrogen 9 mg/dL (8-26); Calcium 8.7 mg/dL (8.6-10.8); Carbon Dioxide 26 mEq/L (19-29); Chloride 104 mEq/L (98-109); Chol/HDL Ratio 5.8 (0-4.9); Cholesterol 116 mg/dL (< 200); Glucose 91 mg/dL (70-99); HDL Cholesterol 20 mg/dL (40-59); LDL Cholesterol,Calculated 79 mg/dL (0-99); Magnesium 1.8 mg/dL (1.6-2.6); Osmolality,Calculated 284 (280-300); Potassium 3.5 mEq/L (3.5-4.5); Sodium 138 mEq/L (136-145); Total Protein 6.2 g/dL (6.0-8.3); Triglycerides 87 mg/dL (< 150); eGFR For African Americans > 60 (> 60); eGFR For Non-African Americans > 60 (> 60)
[2016-10-30 07:23] LABS: Basophils % 0.1 %; Eosinophils # 0.1 K/mcL (0.0-0.6); Eosinophils % 1.3 %; Hematocrit 33.8 % (37.5-50.1); Hemoglobin 10.4 g/dL (12.9-16.9); Immature Granulocytes % 0.5 % (0-4); Immature Platelets 2.8 % (1.1-6.1); Lymphocytes # 0.4 K/mcL (0.6-4.6); Lymphocytes % 5.4 %; Mean Corpuscular HGB Conc 30.8 g/dL (31.6-35.5); Mean Corpuscular Hemoglobin 26.9 pg (28.0-33.3); Mean Corpuscular Volume 87.6 fL (83.0-100.0); Mean Platelet Volume 9.5 fL (9.4-12.4); Monocytes # 0.6 K/mcL (0.0-1.3); Monocytes % 7.5 %; Neutrophils # 6.7 K/mcL (1.6-8.9); Platelet Count 242 K/mcL (140-400); Red Blood Count 3.86 M/mcL (4.19-5.50); Red Cell Distribution Width 15.2 % (11.5-14.5); Segmented Neutrophils % 85.2 %
[2016-10-30 07:28] VITALS: BP 108/79
--- NOTE | 2016-10-30 08:42 | Discharge Summary ---
<Adarsh Christianson - Last Filed: 10/30/16 08:37> Date of Encounter: 10/30/16 Time of Encounter: 08:37 - Discharge Medications Prescriptions: Diltiazem CD (24hr) [Cardizem CD] 180 mg PO DAILY #30 cap.er.24h Metoprolol [Lopressor] 25 mg PO BID #60 tablet Home Medications: Amlodipine Besylate 10 mg PO DAILY 09/22/16 [History] Ascorbate Calcium [Vitamin C] 500 mg PO DAILY 09/22/16 [History] Aspirin 81 mg PO DAILY 09/22/16 [History] ClonazePAM [Klonopin] 1 mg PO QID 09/22/16 [History] Multivitamin [Multi-Day Vitamins] 1 tab PO DAILY 09/22/16 [History] Albuterol Sulfate [Ventolin Hfa] 2 puff IH Q4H PRN 10/12/16 [History] Buprenorphine HCl [Subutex] 8 mg SL QWEEK 10/12/16 [History] Fluticasone/Salmeterol [Advair 250-50 Diskus] 1 puff IH BID 10/12/16 [History] Lisinopril [Zestril] 20 mg PO DAILY 10/12/16 [History] Nicotine Patch [Nicoderm] 14 mg TD DAILY #20 patch.td24 10/17/16 [Rx] Cyanocobalamin (B-12) [Vitamin B12] 1,000 mcg PO DAILY 10/29/16 [History] Ergocalciferol (VITAMIN D2) [Vitamin D2] 50,000 unit PO Q2W 10/29/16 [History] Ibuprofen [Motrin] 200 mg PO Q4HR 10/29/16 [History] Oxycodone HCl/Acetaminophen [Percocet 5-325 mg Tablet] 1 each PO Q6H 10/29/16 [ History] Sennosides/Docusate Sodium [Senna Plus] 2 tab PO BID 10/29/16 [History] Diltiazem CD (24hr) [Cardizem CD] 180 mg PO DAILY #30 cap.er.24h 10/30/16 [Rx] Metoprolol [Lopressor] 25 mg PO BID #60 tablet 10/30/16 [Rx] Allergies/Adverse Reactions: Allergies No Known Allergies Allergy (Verified 10/11/16 11:18) Procedures/tests Complete & Pending: Procedures Performed prior 72 hours Category Date Time Status CT chest wo con [CT] Stat Cat Scan 10/29/16 13:49 Completed VQ Scan [NM pul vent and perfuse] [NM] Stat Exams 10/29/16 13:33 Completed Date of admission: 10/29/16 13:29 Primary care physician: Jojo Prieto CNP Consults: 10/29/16 13:37 Consult to Pulmonology [CONS] Routine Consulting Provider: [facility] Sleep [facility] Reason for Consult: Large right pleural effusion which has increased in size Call Completed: Yes 10/29/16 16:31 Consult to Nutrition [CONS] Routine Comment: Consulting Provider: NUTRITION Reason for Dietary Consult: MST Score Consult to Warp Dresser [CONS] Routine Reason for SW Consult: SAID HAD [facility] HOME OXYGEN - Patient Status Disposition: Left Against Medical Advice Condition: Critical Functional capacity at discharge: independent ambulation Overall status at discharge: patient is not back to baseline - Discharge Instructions Follow Up With: Jojo Prieto CNP [Primary Care Provider] - Linette Stanley MD [Partnered Physician] - Additional Instructions: Patient left against medical advice. Take all home meds as prescribed. Follow up with PCP and oncology within one week. Return to emergency department if symptoms return. - Diet and Activity Activity: other (Patient left AMA. instructed to take all home meds as prescribed. ) Diet: low fat, low cholesterol Hospital course: Mr. Contreras is a 51 year old male with PMHx of HTN, alcohol abuse, Afib, tobacco abuse, COPD, tumor of optic nerve diagnosed in 2008, recently diagnosed advanced squamous cell carcinoma. He follows outpatient with oncology and pulmonology. Patient was with interventional radiology for placement of A-port. He was sent to the emergency room for palpitations. He was found to be in Afib RVR. At that time, patient was asymptomatic and denied chest pain, shortness of breath. He was admitted to the hospital for workup and monitoring. He had multitude of imaging after admission (see below). Patient was found to have a very large right pleural effusion, and mass seen on chest CT, along with mediastinal lymphadenopathy. Patient was evaluated by pulmonology while in the hospital, and plan was to visualize effusion with ultrasound to see if there is any pocket for possible aspiration. However, when patient was evaluated this morning, he was very agitated and anxious because he came to the hospital for permanent IV access, which was not done due to his Afib RVR. Patient expressed he wanted to sign out AMA. At that time, his HR was elevated in 120s. The attending physician, Dr. Saxena, had a very extensive conversation with patient about leaving AMA and the high risks associated with it. Patient was told that he is at very high risk for multiple conditions including but not limited to stroke, dangerous arrhythmias, and sudden . Patient voiced understanding and still decided he wanted to leave AMA because he had plans this weekend and did not want to be in the hospital. Patient agreed to return to the emergency department if symptoms persisted or returned. Plan: follow up with oncology and PCP within one week of discharge. Take all home meds as described Return to emergency department if symptoms return. Chest X-Ray 10/29/16 10:37 IMPRESSION: 1. Large right pleural effusion, increased in size from previous exam, with dense atelectasis/consolidation involving the right lower lobe and right middle lobe. D/ / 10/29/2016 11:19:54 Emile Srivastava MD / [email or web address] Interpreting Provider: Emile Srivastava MD Pulmonary Perfusion Imaging 10/29/16 13:33 IMPRESSION: Low probability for pulmonary embolism. D/ / Randell Ho MD / Randell Ho MD Interpreting Provider: Randell Ho MD Chest CT 10/29/16 13:49 IMPRESSION: 1. Stable approximate 9 cm necrotic mass within the right lower lobe, consistent with primary lung cancer, with interval increase in amount of central necrosis and liquefaction since the prior exam. 2. Interval development of now complete consolidation of the right middle lobe since the prior exam, with complete obstruction of the right middle lobe bronchus. This could represent postoperative collapse secondary to tumoral involvement of the right middle lobe bronchus, diffuse tumor involvement of the right middle lobe, or underlying pneumonia. Continued imaging follow-up is suggested, and consider bronchoscopy for further evaluation. 3. Interval increase in size of a now moderate sized right pleural effusion, likely malignant. 4. Stable metastatic mediastinal lymphadenopathy. 5. Significant interval improvement in appearance of diffuse tree-in-bud opacities as seen within the right upper lobe on the prior study, which were likely infectious or inflammatory in etiology on the prior exam. 6. New small pericardial effusion. 7. Stable mild gastrohepatic ligament lymphadenopathy. D/ / 10/29/2016 15:01:31 Joni Livingston MD / Purvi Loyola Interpreting Provider: Joni Livingston MD - Time Spent with Patient Total time spent providing and/or coordinating discharge services: - Constitutional Vitals: Temp Pulse Resp BP Pulse Ox 98 F 129 16 108/79 96 10/30/16 07:23 10/30/16 07:23 10/30/16 07:23 10/30/16 07:23 10/30/16 07:23 General appearance: Present: cooperative, A&O X 3, answers questions appropriately Exam: appears disheveled. - Head Head exam: Present: atraumatic, normocephalic - Neck Neck exam general surgery: Present: supple, trachea midline - Respiratory Respiratory exam: Present: decreased breath sounds Additional comments: breath sounds not heard in right lower lung - Cardiovascular Cardiovascular exam: Present: tachycardia - GI/Abdominal GI/Abdominal exam: Present: normal bowel sounds, soft. Absent: distended Additional comments: scar noticed down midline of abdomen - Extremities Exam Extremities exam: Absent: cyanotic, pedal edema - Neurological Exam Neurological exam: Present: alert, oriented X3 - Psychiatric Psychiatric exam: Present: agitated, anxious - Skin Skin exam: Absent: cyanosis <Odessa,James P - Last Filed: 11/02/16 18:16> Date of Encounter: 11/02/16 Date of admission: 10/29/16 13:29 Primary care physician: Jojo Prieto CNP Consults: 10/29/16 13:37 Consult to Pulmonology [CONS] Routine Consulting Provider: Pulm [facility] [place] Reason for Consult: Large right pleural effusion which has increased in size Call Completed: Yes 10/29/16 16:31 Consult to Nutrition [CONS] Routine Comment: Consulting Provider: NUTRITION Reason for Dietary Consult: MST Score Consult to Warp Dresser [CONS] Routine Reason for SW Consult: [facility] Hospital course: Mr. Contreras is a 51 year old male - Time Spent with Patient Total time spent providing and/or coordinating discharge services: - Constitutional Vitals: Temp Pulse Resp BP Pulse Ox 98 F 129 16 108/79 96 10/30/16 07:23 10/30/16 07:23 10/30/16 07:23 10/30/16 07:23 10/30/16 07:23 - Attending Attestation I examined this patient and my medical decision-making was reviewed with the PASSENGER CAR INSPECTOR/PA/Advanced Practice Nurse/Resident Physician. I agree with the documented findings, disposition and treatment plan as described except to the extent set forth below.
[2016-10-30] MEDS: clonazePAM 1 MG TABLET PO SCH (08:51)
[2016-10-30] MEDS ORDERED: Aspirin 81 MG TAB.CHEW PO SCH (09:00)
[2016-10-30] MEDS ORDERED: Nicotine 14 MG PATCH.TD24 TD SCH (09:00)
[2016-10-30] MEDS ORDERED: Lisinopril 20 MG TABLET PO SCH (09:00)
[2016-10-30] MEDS ORDERED: NON-FORMULARY MEDICATION 1 EACH EACH (Amlodipine Besylate [Amlodipine Besylate] 10 MG) PO SCH (09:00)
[2016-10-30] MEDS ORDERED: Multivit/Ca/Min/Fe/FA 1 TAB TABLET PO SCH (09:00)
[2016-10-30] MEDS ORDERED: *HR* Digoxin 0.5 MG/2 ML AMPUL IVP SCH (09:00)
[2016-10-30] MEDS ORDERED: Diltiazem CD (24hr) 180 MG CAPSULE PO SCH (09:00)
[2016-10-30] MEDS ORDERED: *HR* Digoxin 0.125 MG TABLET PO SCH (09:00)
[2016-10-30] MEDS ORDERED: Ascorbic Acid 500 MG TABLET PO SCH (09:00)
[2016-10-30] MEDS ORDERED: Cyanocobalamin (B-12) 1,000 MCG TABLET PO SCH (09:00)
--- NOTE | 2016-10-30 17:40 | Electrocardiograph Report ---
[address] [address] Test Date: 2016-10-29 Pat Name: Delonte Contreras Department: [id number] Room: 2NE29 Gender: M Ground [employer] Chief: : [id number] Requested By: Manuel Peters Order Number: [id number] Reading MD: Yana Love Measurements Intervals [place] Rate: 134 P: MO: 0 QRS: 62 QRSD: 78 T: 30 QT: 282 QTc: 361 Interpretive Statements ATRIAL FIBRILLATION WITH RAPID VENTRICULAR RESPONSE LOW QRS VOLTAGE IN EXTREMITY LEADS ABNORMAL RHYTHM ECG
== END 2016-10-30 09:35 | disposition left against medical advice (07) ==
LOC: 2NENU 10:08 → EMEROO 10:08 → 2NENU 14:06
PROVIDERS: ADMIT Nurse Practitioner Family; ATTEND Internal Medicine